=== PATIENT | male | born 1990 | race African-American/Black ===

== ENCOUNTER 2022-02-21 09:03 | Outpatient (CLI) | payer OTHER, SELFPAY ==
--- NOTE | ~2022-02-21 | US_ITS ---
US abdomen complete DATE: 02/21/2022 09:39 INDICATION: Chronic anemia TECHNIQUE: Real-time imaging and Doppler analysis of the complete abdomen COMPARISON: None FINDINGS: No hepatic space-occupying mass lesion. Normal hepatopedal portal venous flow direction. No gallstones or gallbladder wall thickening or pericholecystic fluid collection. Negative sonographi c Moreno's sign. The common bile duct measures 3.5 mm, normal. The pancreas is not well demonstrated due to overlying bowel gas. Right kidney measures 10.2 cm length, left kidney 10.6 cm length. No renal mass lesion or hydronephro sis is evident. Splenic size is within normal range, measuring up to 9.9 cm length. Normal caliber of the abdominal aorta. The inferior vena cava is unremarkable. IMPRESSION: No evidence of splenomegaly Limited visualization of the pancreas Reviewed, dictated and finalized at Location A. Reviewed, dictated and finalized at location B.
== END 2022-02-21 09:04 | disposition home or self-care (01) ==
LOC: ANHIMG 09:09
PROVIDERS: PCP Internal Medicine; Visit Provider Internal Medicine Hematology & Oncology
DX: D64.9 Anemia, unspecified (principal)
CPT/HCPCS: 76700

== ENCOUNTER 2023-01-01 15:44 | Outpatient (CLI) | payer OTHER, SELFPAY ==
[2023-01-01 15:55] LABS: Basophils Percent Auto 0.4 % (0.2-1.2); Eosinophils Absolute Auto 0.4 K/mm3 (0-0.3); Eosinophils Percent Auto 9.4 % (0-4.4); Hematocrit 44.4 % (42.0-52.0); Hemoglobin 14.2 g/dL (14.0-18.0); Immature Granulocyte Absolute 0.01 K/mm3 (0.00-0.031); Immature Granulocyte Percent A 0.2 % (0-0.5); Lymphocytes Absolute Auto 1.86 K/mm3 (0.9-3.2); Lymphocytes Percent Auto 40.7 % (18.3-44.2); Mean Corpuscular Hemoglobin 27.3 pg (26-34); Mean Corpuscular Volume 85.4 fl (80-100); Mean Platelet Volume 10.3 fl (7.4-10.4); Monocytes Absolute Auto 0.5 K/mm3 (0.1-0.6); Monocytes Percent Auto 9.8 % (2.6-8.5); Neutrophils Absolute Auto 1.8 K/mm3 (1.3-6.7); Neutrophils Percent Auto 39.5 % (45.5-73.1); Platelet Count Result 243 k/mm3 (150-375); Red Cell Distribution Width 13.3 % (11.5-14.5); White Blood Count 4.6 K/mm3 (4.5-10.0)
[2023-01-01 15:58] LABS: Blood Urea Nitrogen 17 mg/dL (8-26); Carbon Dioxide 28 mmol/L (22-30); Chloride 99 mmol/L (98-109); Estimated Glomerular Filt Rate > 60; Glucose 102 mg/dL (70-105); Ionized Calcium (POC) 1.24 mmol/L (1.11-1.31); Potassium 3.5 mmol/L (3.5-4.9); Sodium 140 mmol/L (138-146)
[2023-01-01 16:32] LABS: Alanine Aminotransferase 27 U/L (6-50); Albumin Level 4.7 g/dL (3.5-5.1); Alkaline Phosphatase 65 U/L (38-126); Anion Gap 7 mmol/L (8-16); Aspartate Amino Transferase 60 U/L (17-59); Bilirubin,Total 0.4 mg/dL (0.2-1.3); Blood Urea Nitrogen 17 mg/dL (9-20); Calcium 9.1 mg/dL (8.4-10.2); Carbon Dioxide 31 mmol/L (22-30); Chloride 100 mmol/L (98-107); Estimated Glomerular Filt Rate > 60; Glucose 101 mg/dL (65-110); Potassium 3.5 mmol/L (3.4-5.0); Sodium 138 mmol/L (137-145)
== END 2023-01-01 15:45 | disposition home or self-care (01) ==
PROVIDERS: PCP Internal Medicine; Visit Provider Internal Medicine Hematology & Oncology
DX: D72.819 Decreased white blood cell count, unspecified (principal)
CPT/HCPCS: 36415; 80047; 80053; 85025

== ENCOUNTER 2023-09-03 09:50 | Outpatient (CLI) | payer OTHER, SELFPAY ==
[2023-09-03 10:07] LABS: Basophils Percent Auto 0.7 % (0.2-1.2); Eosinophils Absolute Auto 0.4 K/mm3 (0-0.3); Eosinophils Percent Auto 9.1 % (0-4.4); Hematocrit 46.1 % (42.0-52.0); Hemoglobin 14.7 g/dL (14.0-18.0); Immature Granulocyte Absolute 0.01 K/mm3 (0.00-0.031); Immature Granulocyte Percent A 0.2 % (0-0.5); Lymphocytes Absolute Auto 1.99 K/mm3 (0.9-3.2); Lymphocytes Percent Auto 47.5 % (18.3-44.2); Mean Corpuscular HGB Conc 31.9 g/dl (32-36); Mean Corpuscular Hemoglobin 27.3 pg (26-34); Mean Corpuscular Volume 85.7 fl (80-100); Mean Platelet Volume 9.9 fl (7.4-10.4); Monocytes Absolute Auto 0.5 K/mm3 (0.1-0.6); Monocytes Percent Auto 11.2 % (2.6-8.5); Neutrophils Absolute Auto 1.3 K/mm3 (1.3-6.7); Neutrophils Percent Auto 31.3 % (45.5-73.1); Platelet Count Result 245 k/mm3 (150-375); Red Blood Count 5.38 M/mm3 (4.6-6.20); Red Cell Distribution Width 13.2 % (11.5-14.5); White Blood Count 4.2 K/mm3 (4.5-10.0)
== END 2023-09-03 09:51 | disposition home or self-care (01) ==
PROVIDERS: PCP Internal Medicine; Visit Provider Internal Medicine Hematology & Oncology
DX: D64.9 Anemia, unspecified (principal)
CPT/HCPCS: 36415; 85025

== ENCOUNTER 2024-10-17 10:17 | Outpatient (CLI) | payer OTHER, SELFPAY ==
[2024-10-17 10:40] LABS: Basophils Percent Auto 0.7 % (0.2-1.2); Eosinophils Absolute Auto 0.4 K/mm3 (0-0.3); Eosinophils Percent Auto 11.9 % (0-4.4); Hemoglobin 14.4 g/dL (14.0-18.0); Immature Granulocyte Absolute 0.01 K/mm3 (0.00-0.031); Immature Granulocyte Percent A 0.3 % (0-0.5); Lymphocytes Absolute Auto 1.55 K/mm3 (0.9-3.2); Lymphocytes Percent Auto 52.7 % (18.3-44.2); Mean Corpuscular HGB Conc 31.3 g/dl (32-36); Mean Corpuscular Hemoglobin 26.8 pg (26-34); Mean Corpuscular Volume 85.5 fl (80-100); Mean Platelet Volume 9.7 fl (7.4-10.4); Monocytes Absolute Auto 0.3 K/mm3 (0.1-0.6); Monocytes Percent Auto 10.2 % (2.6-8.5); Neutrophils Absolute Auto 0.7 K/mm3 (1.3-6.7); Neutrophils Percent Auto 24.2 % (45.5-73.1); Platelet Count Result 274 k/mm3 (150-375); Red Blood Count 5.38 M/mm3 (4.6-6.20); Red Cell Distribution Width 13.2 % (11.5-14.5); White Blood Count 2.9 K/mm3 (4.5-10.0)
--- OUTSIDE RECORDS SUMMARY | 2024-10-17 10:52 | XMS_ITS | Clinical Summary ---
Author Organization [facility] Address [address] [place] [address] Care Team Providers Care Cube Machine Tender Name Role Phone Lukas Bustamante MD Primary Care Provider Allergies No known active allergies Medications metFORMIN (GLUCOPHAGE) 500 mg tablet Take 500 mg by mouth 2 times daily. 01/13/2021 Active Active Problems Problem Noted Date Diagnosed Date Other neutropenia 02/06/2022 Encounters Date Type Department Care Team Description 09/12/2024 Orders Only [facility] Oncology and Hematology - [place] [address] [place] [address] Evaristo Lindsey MD Leukopenia, unspecified type (Primary Dx) from Last 3 Months Family History Medical History Relation Name Comments Breast Cancer Mother Relation Name Status Comments Brother Alive Daughter 1 Alive Daughter 2 Alive Father Mother Sister Alive Social History Tobacco Use Types Packs/Day Years Used Date Smoking Tobacco: Every Day Cigarettes Smokeless Tobacco: Never Tobacco Cessation:Ready to Q uit: Not Asked; Counseling Given: Not Answered Alcohol Use Standard Drinks/Week Comments Never 0 (1 standard drink = 0.6 oz pur e alcohol) Sex and Gender Information Value Date Recorded Sex Assigned at Not on file Legal Sex Male 3:28 PM CDT Gender Identity Not on file Sexual Orientation Not on file Last Filed Vital Signs Vital Sign Reading Time Taken Comments Blood Pressure 138/84 09/03/2023 10:10 AM WEDDING DECORATOR Pulse 82 09/03/2023 10:09 AM WEDDING DECORATOR Temperature 36.2 C (97.2 F) 09/03/2023 10:09 AM WEDDING DECORATOR Respiratory Rate 10 09/03/2023 10:09 AM WEDDING DECORATOR Oxygen Saturation 97% 09/03/2023 10:09 AM WEDDING DECORATOR Inhaled Oxygen Concentration - - Weight 76.2 kg (168 lb) 09/03/2023 10:09 AM WEDDING DECORATOR Height 180.3 cm (5' 11 ) 02/06/2022 10:24 AM CDT Body Mass Index 23.43 02/06/2022 10:24 AM CDT Plan of Treatment Upcoming Encounters Date Type Department Care Team (Late st Contact Info) Description 12/30/2024 2:45 PM CDT Office Visit [facility] - [place] [address] [facility] [address] [place] [address] Evaristo Lindsey MD [address] [facility] [address] [place] [address] Health Maintenance Due Date Last Done Comments HEPATITIS B VACCINES (1 of 3 - 19+ 3-dose series) 2007 INFLUENZA VACCINE (#1) 2024 2, 06/05/2019, 06/04/2018 Preventative Visit- Commercial 08/27/2024 DTAP/TDAP/TD VACCINES (8 - Td or Tdap) 04/12/2031 04/12/2021, 06/04/2018, 04/27/2014, Additional history exists HPV VACCINES Aged Out No longer eligi ble based on patient's age to complete this topic Insurance Care Teams Cube Machine Tender Relationship Specialty Start Date End Date Lukas Bustamante MD PCP - General Internal Medicine 02/06/22
--- OUTSIDE RECORDS SUMMARY | 2024-10-17 10:52 | XMS_ITS | Clinical Summary ---
Author Organization [facility] Address [address] [place] [address] Care Team Providers Care Electrical Equipment Technician Name Role Phone Unavailable Primary Care Provider Unavailabl e Source Comments [facility],non-owned Affiliates and Associated Physician Practices is amultiple site organization consisting of ambulatory clinics and hospital sitesin [place], [place] and [place]. This disclosure is being madepursuant to the Care Everywhere program and may not contain all information available regarding this patient. Last updated 18.[facility] [employer] Allergies Active Allergy Reactions Criticality Noted Date Comments Ibuprofen Urticaria,Swelling Medium 03/28/2012 Swelling Immunizations Name Administration Dates Next Due TDAP (7yrs+) 04/12/2021 Social History Tobacco Use Types Packs/Day Years Used Date Smoking Tobacco: Never Assessed Sex and Gender Information Value Date Recorded Sex Assigned at Not on file Gender Identity Not on file Sexual Orientation Not on file Plan of Treatment Health Maintenance Due Date Last Done Comments HIV SCREENING 2003 HEPATITIS C SCREENING 07/20/2006 HEPATITIS B VACCINE (1 of 3 - 19+ 3-dose series) 2007 COVID-19 VACCINE (2023-2 5 season) 2024 INFLUENZA VACCINE (#1) 2024 9, 06/27/2018, 06/04/2018 DEPRESSION SCREENING 08/27/2024 DTAP/TDAP/TD VACCINES (2 - T d or Tdap) 04/12/2031 04/12/2021 ZOSTER VACCINE (1 of 2) 2038 HIB VACCINE Aged Out No longer eligi ble based on patient's age to complete this topic HPV VACCINE Aged Out No longer eligi ble based on patient's age to complete this topic MENINGOCOCCAL (Group B) VACCINE Aged Out No longer eligible b ased on patient's age to complete this topic MENINGOCOCCAL VACCINE Aged Out No chela josé miguel eligible based on patient's age to complete this topic PNEUMOCOCCAL VACCINE Aged Out No long er eligible based on patient's age to complete this topic
--- OUTSIDE RECORDS SUMMARY | 2024-10-17 10:52 | XMS_ITS | Referral Summary ---
Author Organization [facility] Address [address] [place] [address] Care Team Providers Care Hospital Admissions Clerk Name Role Phone Unavailable Primary Care Provider Unavailabl e Source Comments [facility],non-owned Affiliates and Associated Physician Practices is amultiple site organization consisting of ambulatory clinics and hospital sitesin [place], [place], [place] and [place]. This disclosure is being madepursuant to the Care Everywhere program and may not contain all information available regarding this patient. Last updated 18.[facility] Allergies Active Allergy Reactions Criticality Noted Date Comments Ibuprofen Urticaria,Swelling Medium 03/28/2012 Swelling Immunizations Name Administration Dates Next Due TDAP (7yrs+) 04/12/2021 Social History Tobacco Use Types Packs/Day Years Used Date Smoking Tobacco: Never Assessed Sex and Gender Information Value Date Recorded Sex Assigned at Not on file Gender Identity Not on file Sexual Orientation Not on file Plan of Treatment Not on file
--- OUTSIDE RECORDS SUMMARY | 2024-10-17 10:52 | XMS_ITS | Patient Health Summary ---
Author Organization [facility] Address [address] [place] [address] Care Team Providers Care Coffee Shop Attendant Name Role Phone Unavailable Primary Care Provider Unavailabl e Note from [facility],non-owned Affiliates and Associated Physician Practices is amultiple site organization consisting of ambulatory clinics and hospital sitesin [place], [place], [place] and [place]. This disclosure is being madepursuant to the Care Everywhere program and may not contain all information available regarding this patient. Last updated 18.[facility] Allergies * Ibuprofen(Urticaria,Swelling) -Medium Criticality Immunizations * TDAP (7yrs+)(Given 04/12/2021) Social History Tobacco Use Types Packs/Day Years Used Date Smoking Tobacco: Never Assessed Sex and Gender Information Value Date Recorded Sex Assigned at Not on file Gender Identity Not on file Sexual Orientation Not on file
--- OUTSIDE RECORDS SUMMARY | 2024-10-17 10:53 | XMS_ITS | Clinical Summary ---
Author Organization [facility] Address [address] [place] [id number] Care Team Providers Care Professor Of Art History Name Role Phone Amy Bustamante MD Primary Care Provide r Fidel Real DO Unavailable [phone] Allergies Active Allergy Reactions Criticality Noted Date Comments Ibuprofen Hives,Swelling Medium 03/28/2012 Swelling Medications metFORMIN (GLUCOPHAGE) 500 mg tablet Take 500 mg by mouth 2 (two) times a day 01/13/2021 Active Active Problems Problem Noted Date Diagnosed Date Other neutropenia (CMS/HCC) 08/10/2018 Immunizations Immunization Administration Dates Next Due DTP 03/23/1993, 0,1988,09/25 HiB 04/30/1990 Influenza, Quadrivalent, Spl it, Preservative Free, Intramuscular 06/05/2019,06/04/2018 Influenza, Unspecified 06/27/2018 MMR 03/23/1993,04/30/1990 OPV 03/23/1993, 0,02/12/1989,12/02,1988 Td, adsorbed 02/12/1989 Tdap 06/04/2018,04/27/2014 Surgical History Surgery Date Site/Laterality Comments NO PAST SURGERIES Medical History Medical History Date Comments Known health problems: none Diabetes mellitus (HCC) Family History Medical History Relation Name Comments Neutropenia Father Breast cancer Mother Leukemia Other Relation Name Status Comments Father Alive Mother Other Social History Tobacco Use Types Packs/Day Years Used Date Smoking Tobacco: Never Smokeless Tobacco: Never Alcohol Use Standard Drinks/Week Comments No 0 (1 standard drink = 0.6 oz pur e alcohol) Personal Safety Answer Date Recorded Getting School Help Needed Not on file 10/20 Sex and Gender Information Value Date Recorded Sex Assigned at Not on file Legal Sex Male 10:15 PM COORDINATOR OF ONLINE PROGRAMS Gender Identity Not on file Sexual Orientation Not on file 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 Not on file Not on file Obstetrics History Last Filed Vital Signs Vital Sign Reading Time Taken Comments Blood Pressure 129/87 02/21/2021 11:35 AM CDT Pulse 79 02/21/2021 11:35 AM CDT Temperature 37.1 C (98.8 F) 02/21/2021 11:35 AM CDT Respiratory Rate 16 02/21/2021 11:35 AM CDT Oxygen Saturation 100% 02/21/2021 11:35 AM CDT Inhaled Oxygen Concentration - - Weight 80.7 kg (178 lb) 02/21/2021 11:35 AM CDT Height 180.3 cm (5' 11 ) 02/21/2021 11:35 AM CDT Body Mass Index 24.83 02/21/2021 11:35 AM CDT Plan of Treatment Not on file Insurance [facility] [employer] [employer] Care Teams Professor Of Art History Relationship Specialty Start Date End Date Amy Bustamante MD [address] [address] PCP - General Internal Medicine 08/01/18 Fidel Real DO [address] [place] [id number] Medical Oncologist/Railroad Baggage Porter Hematology and Oncology 02/10/19
--- OUTSIDE RECORDS SUMMARY | 2024-10-17 10:53 | XMS_ITS | Referral Summary ---
Author Organization [facility] Address [address] [place] [address] Care Team Providers Care Newspaper Editor Managing Name Role Phone Amy Bustamante MD Primary Care Provide r Fidel Real DO Unavailable [phone] Allergies Active Allergy Reactions Criticality Noted Date Comments Ibuprofen Hives,Swelling Medium 03/28/2012 Swelling Medications metFORMIN (GLUCOPHAGE) 500 mg tablet Take 500 mg by mouth 2 (two) times a day 01/13/2021 Active Active Problems Problem Noted Date Diagnosed Date Other neutropenia ([facility]) 08/10/2018 Immunizations Immunization Administration Dates Next Due DTP 03/23/1993, 0,1988,09/25 HiB 04/30/1990 Influenza, Quadrivalent, Spl it, Preservative Free, Intramuscular 06/05/2019,06/04/2018 Influenza, Unspecified 06/27/2018 MMR 03/23/1993,04/30/1990 OPV 03/23/1993, 0,02/12/1989,12/02,1988 Td, adsorbed 02/12/1989 Tdap 06/04/2018,04/27/2014 Social History Tobacco Use Types Packs/Day Years Used Date Smoking Tobacco: Never Smokeless Tobacco: Never Alcohol Use Standard Drinks/Week Comments No 0 (1 standard drink = 0.6 oz pur e alcohol) Personal Safety Answer Date Recorded Getting School Help Needed Not on file 10/20 Sex and Gender Information Value Date Recorded Sex Assigned at Not on file Legal Sex Male 10:15 PM ADJUNCT SOCIOLOGY PROFESSOR Gender Identity Not on file Sexual Orientation Not on file 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
--- OUTSIDE RECORDS SUMMARY | 2024-10-17 10:53 | XMS_ITS | Data Portability ---
Author Organization [employer], Main Office Address [address] [place] [address] Care Team Providers Care System Administration Manager Name Role Phone LUKAS BUSTAMANTE Primary Care Provider LUKAS BUSTAMANTE Referring Provider Assessment Encounter Date Assessment Date Assessment LastModified by Organization Details LastModified Time 01/02/2023 01/02/2023 06/15/2022: A1C 5.8 TSH WNL CMP: BUN 26H, glob 2.5L, TP WNL LIPIDS: LDL 100 Urine micro alb 6.4 CBC: WBC 3.5L 12/18/2022: A1C 5.9 TSH: WNL CMP: WNL CBC: WBC 3.1 Urine micro alb <6.0 01/01/2023: Dr Lindsey CBC/CMP: WNL Not available 01/02/2023 10:18:08 07/23/2023 07/23/2023 06/15/2022: A1C 5.8 TSH WNL CMP: BUN 26H, glob 2.5L, TP WNL LIPIDS: LDL 100 Urine micro alb 6.4 CBC: WBC 3.5L 12/18/2022: A1C 5.9 TSH: WNL CMP: WNL CBC: WBC 3.1 Urine micro alb <6.0 01/01/2023: Dr Lindsey CBC/CMP: WNL 07/02/2023: A1C 5.7 LDL 114 WBC 3.5 Not available 07/23/2023 14:20:52 01/10/2024 01/10/2024 06/15/2022: A1C 5.8 TSH WNL CMP: BUN 26H, glob 2.5L, TP WNL LIPIDS: LDL 100 Urine micro alb 6.4 CBC: WBC 3.5L 12/18/2022: A1C 5.9 TSH: WNL CMP: WNL CBC: WBC 3.1 Urine micro alb <6.0 01/01/2023: Dr Lindsey CBC/CMP: WNL 07/02/2023: A1C 5.7 LDL 114 WBC 3.5 12/24/2023: A1C 5.7 VIT D 23.0 WBC 3.7 Glob 2.3L, TP WNL [email or web address] Not available 01/10/2024 15:39:28 Plan of Treatment Reminders Order Date Submit Date Provider Last Modified By Organization Details Last Modified Time Details Appointments Any 15 2024 03:45P Jensen hernandes MD Not available Not available Not available Lab vitamin D, 25-hydrox y, total, serum [address] (Lab), [address] [place], [address], 07/08/2024 09:24:25 glycohemo globin, total, blood [address] (Lab), [address] [place], [address], 07/08/2024 09:24:25 microalbu min, urine [address] (Lab), [address] [place], [address], 07/08/2024 09:24:25 lipid panel, serum [address] (Lab), [address] [place], [address], 07/08/2024 09:24:24 CBC w/ auto diff [address] (Lab), [address] [place], [address], 07/08/2024 09:24:24 CMP, serum or plasma [address] (Lab), [address] [place], [address], 07/08/2024 09:24:24 TSH, serum or plasma [address] (Lab), [address] [place], [address], 07/08/2024 09:24:25 vitamin D, 25-hydrox y, total, serum [address] (Lab), [address] [place], [address], 02/25/2024 09:08:24 glycohemo globin, total, blood 2022 023 [facility] (Lab), [address] [place], [address], 12/24/2023 12:52:07 microalbu min, urine 2022 023 [facility] (Lab), [address] [place], [address], 12/24/2023 11:05:59 lipid panel, serum 2022 023 [facility] (Lab), [address] [place], [address], 12/24/2023 10:53:49 CBC w/ auto diff 2022 023 [facility] (Lab), [address] [place], [address], 12/24/2023 11:02:31 CMP, serum or plasma 2022 023 [facility] (Lab), [address] [place], [address], 10/02/2023 16:43:20 TSH, serum or plasma 2022 023 [facility] (Lab), [address] [place], [address], 12/24/2023 11:20:54 glycohemo globin, total, blood 2022 023 [facility] (Lab), [address] [place], [address], 07/02/2023 14:01:12 microalbu min, urine [address] (Lab), [address] [place], [address], 08/28/2023 12:45:54 lipid panel, serum 2022 023 [facility] (Lab), [address] [place], [address], 07/02/2023 11:29:12 CBC w/ auto diff 2022 023 [facility] (Lab), [address] [place], [address], 07/02/2023 11:16:22 CMP, serum or plasma 2022 023 [facility] (Lab), [address] [place], [address], 07/02/2023 11:29:20 TSH, serum or plasma 2022 023 [facility] (Lab), [address] [place], [address], 07/02/2023 12:17:12 Referral urologist referral 2023 024 MILLY Kirkpatrick MD, [address], [place], [address], 03/21/2024 16:02:25 urologist referral 2022 023 Jesse Beth MD, [address], [place], [address], 03/04/2024 15:23:26 Procedures None recorded. Surgeries None recorded. Imaging None recorded. Medication Orders rosuvasta tin 40 mg tablet 2022 023 [id number], [address] , [place], [place], [id number], 07/23/2023 14:39:58 Patient TargetsNo targets recorded. Patient Instructions Encounter Date Encounter Id Patient Instructions Last Modified By Organization Details Last Modified Time 07/23/2023 [id number] diabetic eye exam* MILLY Not available 01/22/2024 07:25:54 03/21/2024 [id number] I explained to the patient that itches constipation along with his seminal vesicles being full of semen and it just pushes out some the semen I the ejaculatory duct and that is all and it has no concern [email or web address] Not available 03/21/2024 15:32:38 Reason for Referral Urologist Referral for Kylah ture ejaculation Referring Physician: Lukas Bustamante, Internal Medicine, Encounter Date: 07/23/2023 Urologist Referral for Kyalh ture ejaculation Referring Physician: Lukas Bustamante Internal Medicine, Encounter Date: 01/10/2024 Results Created Date Observation Date Name Description Value Unit Range Abnormal Flag Note LastModifiedBy Organization Detail LastModifiedTime 06/15/2006/15/2022 HEMOG LOBIN A1C HA1C 5.8 % 4.0-6. 0 Diabe albert Scree jorge Crite apollo: <5.7% Consi stent with absen ce of diabe albert 5.7-6 .4% Consi stent with incre ased risk for diabe albert (pred iabet es) >OR=6 .5% Consi stent with diabe albert REFER ENCE: Diabe albert Care 2015, 39(Gillis ppl.1 ):s13 -s22 Not Available [facility] (Lab) [address] [place], [address], 06/15/2022 20:12:32 06/15/20 22 06/15/2022 TSH W/REF TERRANCE FT4 TSH with reflex free T4 1.690 uIU/m L 0.465- 4.680 Not Available [facility] (Lab) [address] [place], [address], 06/15/2022 12:18:52 06/15/20 22 06/15/2022 COMPR EHENS HAYLEE METAB OLIC PANEL anion gap 14.3 mmol/ L 14-22 Not Available [facility] (Lab) [address] [place], [address], 06/15/2022 12:08:29 06/15/20 22 06/15/2022 COMPR EHENS HAYLEE METAB OLIC PANEL sodium 142 mmol/ L 137-14 5 Not Available [facility] (Lab) [address] [place], [address], 06/15/2022 12:08:29 06/15/20 22 06/15/2022 COMPR EHENS HAYLEE METAB OLIC PANEL potassium 4.3 mmol/ L 3.5-5. 1 Not Available [facility] (Lab) [address] [place], [address], 06/15/2022 12:08:29 06/15/20 22 06/15/2022 COMPR EHENS HAYLEE METAB OLIC PANEL chloride 105 mmol/ L 98-107 Not Available [facility] (Lab) [address] [place], [address], 06/15/2022 12:08:29 06/15/20 06/15/2022 COMPR EHENS HAYLEE METAB OLIC PANEL carbon dioxide 27 mmol/ L 22-30 Not Available [facility] (Lab) [address] [place], [address], 06/15/2022 12:08:29 06/15/20 22 06/15/2022 COMPR EHENS HAYLEE METAB OLIC PANEL glucose 88 mg/dL 70-99 Not Available [facility] (Lab) [address] [place], [address], 06/15/2022 12:08:29 06/15/20 22 06/15/2022 COMPR EHENS HAYLEE METAB OLIC PANEL BUN 26 mg/dL 8-19 high Not Available [facility] (Lab) [address] [place], [address], 06/15/2022 12:08:29 06/15/20 22 06/15/2022 COMPR EHENS HAYLEE METAB OLIC PANEL creatinine 1.03 mg/dL 0.66-1 .25 Not Available [facility] (Lab) [address] [place], [address], 06/15/2022 12:08:29 06/15/20 22 06/15/2022 COMPR EHENS HAYLEE METAB OLIC PANEL aspartate aminotransfe rase 30 U/L 15-46 Not Available [facility] (Lab) [address] [place], [address], 06/15/2022 12:08:29 06/15/20 22 06/15/2022 COMPR EHENS HAYLEE METAB OLIC PANEL GFR >60 Refer ence Range : [place] ge GFR Healt hy Adult : >60 mL/mi n/1.7 3 m2 Chron ic Kidne y Disea se: 15-60 mL/mi n/1.7 3 m2 Kidne y Failu re: <15/m L/min /1.73 m2 www.n iddk. nih.g ov The MDRD study equat ion has not been valid ated in child diane <18 years of age; pregn ant women ; the elder ly >85 years of age; or in some racia l or ethni c subgr oups, such as Hispa nics. Outsi de the valid ated elmo eters , estim ated GFR is less accur ate, requi ring clini charley judgm ent on a case- by-ca se basis . Clini charley inter preta tion for other races and ages must be made by the clini nichelle. The MDRD study equat ion has not been valid ated for the evalu ation of serum creat inine relat ed to nutri tacos l statu s or medic ation usage . For perso ns <18 years of age, a pedia tric GFR calcu lator is avail able on the [facility] websi te: https ://new w.jovanny galvan.o rg/pr ofess ional s/kdo qi/gf r_cal culat or Not Available [facility] (Lab) [address] [place], [address], 06/15/2022 12:08:29 06/15/20 22 06/15/2022 COMPR EHENS HAYLEE METAB OLIC PANEL alkaline phosphatase 90 U/L 38-126 Not Available [facility] (Lab) [address] [place], [address], 06/15/2022 12:08:29 06/15/20 22 06/15/2022 COMPR EHENS HAYLEE METAB OLIC PANEL alanine aminotransfe rase 32 U/L 0-50 Not Available [facility] (Lab) [address] [place], [address], 06/15/2022 12:08:29 06/15/20 22 06/15/2022 COMPR EHENS HAYLEE METAB OLIC PANEL bilirubin, total 0.50 mg/dL 0.20-1 .30 Not Available [facility] (Lab) [address] [place], [address], 06/15/2022 12:08:29 10/20/06/15/2022 COMPR EHENS HAYLEE METAB OLIC PANEL calcium 9.5 mg/dL 8.4-10 .2 Not Available [facility] (Lab) [address] [place], [address], 06/15/2022 12:08:29 06/15/20 22 06/15/2022 COMPR EHENS HAYLEE METAB OLIC PANEL total protein 7.2 g/dL 6.3-8. 2 Not Available [facility] (Lab) [address] [place], [address], 06/15/2022 12:08:29 06/15/20 22 06/15/2022 COMPR EHENS HAYLEE METAB OLIC PANEL albumin 4.7 g/dL 3.4-5. 0 Not Available [facility] (Lab) [address] [place], [address], 06/15/2022 12:08:29 06/15/20 22 06/15/2022 COMPR EHENS HAYLEE METAB OLIC PANEL globulin 2.5 g/dL 2.6-4. 2 low Not Available [facility] (Lab) [address] [place], [address], 06/15/2022 12:08:29 06/15/20 22 06/15/2022 COMPR EHENS HAYLEE METAB OLIC PANEL A/G ratio 1.9 ratio 1.0-2. 0 Not Available [facility] (Lab) [address] [place], [address], 06/15/2022 12:08:29 06/15/20 22 06/15/2022 LIPID PANEL cholesterol 172 mg/dL 140-19 9 NIH MERON NSUS RECOM MENDA TION FOR ARON STERO L: ADULT CHILD LOW RISK: <200 <170 BORDE RLINE : <200- 239 ----- HIGH RISK: >240 >200 Not Available [facility] (Lab) [address] [place], [address], 06/15/2022 12:08:25 06/15/20 22 06/15/2022 LIPID PANEL triglyceride s 68 mg/dL 0-150 NIH MERON NSUS REPOR T RECOM MENDA TION FOR TRIGL YCERI TRICE: ADULT CHILD LOW RISK: <150 ----- BODER LINE: 150-1 99 ----- HIGH RISK: >200 ----- Not Available [facility] (Lab) [address] [place], [address], 06/15/2022 12:08:25 06/15/20 22 06/15/2022 LIPID PANEL HDL cholesterol 58 mg/dL 40- Not Available [facility] (Lab) [address] [place], [address], 06/15/2022 12:08:25 06/15/20 22 06/15/2022 LIPID PANEL LDL cholesterol, calculated 100 mg/dL 0-130 NIH MERON NSUS REPOR T RECOM MENDA TIONS FOR LDL: ADULT CHILD LOW RISK <130 <110 (OPTI MAL LDL) <100 ----- BORDE RLINE : 130-1 59 ----- HIGH RISK: >160 >130 A TRIGL YCERI DE RESUL T >400 INVAL IDATE S THE CALCU LATIO N FOR LDL FRACT IONAT ION - THE LDL RESUL T WILL NOT BE REPOR JAHAIRA. Not Available [facility] (Lab) [address] [place], [address], 06/15/2022 12:08:25 06/15/20 22 06/15/2022 MICRO ALBUM IN RANDO M URINE microalbumin , urine 6.4 mg/L 0.0-16 .6 Not Available [facility] (Lab) [address] [place], [address], 06/15/2022 11:56:49 06/15/20 22 06/15/2022 CBC/C OMPLE TE BLD COUNT W/DIF F mean red cell hemoglobin 26.9 pg 27.0-3 3.0 low Not Available [facility] (Lab) [address] [place], [address], 06/15/2022 11:11:22 06/15/20 22 06/15/2022 CBC/C OMPLE TE BLD COUNT W/DIF F white blood cells 3.5 x10'3 /uL 4.2-10 .8 low Not Available [facility] (Lab) [address] [place], [address], 06/15/2022 11:11:22 06/15/20 22 06/15/2022 CBC/C OMPLE TE BLD COUNT W/DIF F red blood cells 5.32 x10'6 /uL 4.10-5 .80 Not Available [facility] (Lab) [address] [place], [address], 06/15/2022 11:11:22 06/15/20 22 06/15/2022 CBC/C OMPLE TE BLD COUNT W/DIF F hemoglobin 14.3 g/dL 13.2-1 7.0 Not Available [facility] (Lab) [address] [place], [address], 06/15/2022 11:11:22 06/15/20 22 06/15/2022 CBC/C OMPLE TE BLD COUNT W/DIF F hematocrit 46.5 % 39.3-5 0.0 Not Available [facility] (Lab) [address] [place], [address], 06/15/2022 11:11:22 06/15/20 22 06/15/2022 CBC/C OMPLE TE BLD COUNT W/DIF F mean red cell volume 87.4 fL 80.0-9 7.0 Not Available [facility] (Lab) [address] [place], [address], 06/15/2022 11:11:22 06/15/20 22 06/15/2022 CBC/C OMPLE TE BLD COUNT W/DIF F mean RBC HGB concentratio n 30.8 g/dL 31.0-3 6.0 low Not Available [facility] (Lab) [address] [place], [address], 06/15/2022 11:11:22 06/15/20 22 06/15/2022 CBC/C OMPLE TE BLD COUNT W/DIF F red cell distribution width 13.3 % 11.8-1 5.5 Not Available [facility] (Lab) [address] [place], [address], 06/15/2022 11:11:22 06/15/2006/15/2022 CBC/C OMPLE TE BLD COUNT W/DIF F platelets 240 x10'3 /uL 150-40 0 Not Available [facility] (Lab) [address] [place], [address], 06/15/2022 11:11:22 06/15/2006/15/2022 CBC/C OMPLE TE BLD COUNT W/DIF F mean platelet volume 10.6 fL 9.0-12 .4 Not Available [facility] (Lab) [address] [place], [address], 06/15/2022 11:11:22 06/15/20 22 06/15/2022 CBC/C OMPLE TE BLD COUNT W/DIF F neutrophils 33.9 % 39.0-7 2.0 low Not Available [facility] (Lab) [address] [place], [address], 06/15/2022 11:11:22 06/15/20 22 06/15/2022 CBC/C OMPLE TE BLD COUNT W/DIF F lymphocytes 47.7 % 16.0-4 7.0 high Not Available [facility] (Lab) [address] [place], [address], 06/15/2022 11:11:22 06/15/20 22 06/15/2022 CBC/C OMPLE TE BLD COUNT W/DIF F monocytes 12.6 % 5.0-12 .0 high Not Available [facility] (Lab) [address] [place], [address], 06/15/2022 11:11:22 06/15/20 22 06/15/2022 CBC/C OMPLE TE BLD COUNT W/DIF F eosinophils 5.5 % 1.0-7. 0 Not Available [facility] (Lab) [address] [place], [address], 06/15/2022 11:11:22 06/15/2006/15/2022 CBC/C OMPLE TE BLD COUNT W/DIF F basophils 0.3 % 0.0-2. 0 Not Available [facility] (Lab) [address] [place], [address], 06/15/2022 11:11:22 06/15/2006/15/2022 CBC/C OMPLE TE BLD COUNT W/DIF F immature granulocytes 0.0 % 0.00-0 .50 Not Available [facility] (Lab) [address] [place], [address], 06/15/2022 11:11:22 06/15/20 22 06/15/2022 CBC/C OMPLE TE BLD COUNT W/DIF F neutrophils, absolute count 1.18 x10'3 /uL 1.5-8. 0 low Not Available [facility] (Lab) [address] [place], [address], 06/15/2022 11:11:22 06/15/20 22 06/15/2022 CBC/C OMPLE TE BLD COUNT W/DIF F lymphocytes, absolute count 1.66 x10'3 /uL 1.07-3 .43 Not Available [facility] (Lab) [address] [place], [address], 06/15/2022 11:11:22 06/15/20 22 06/15/2022 CBC/C OMPLE TE BLD COUNT W/DIF F monocytes, absolute count 0.44 x10'3 /uL 0.29-0 .99 Not Available [facility] (Lab) [address] [place], [address], 06/15/2022 11:11:22 06/15/20 22 06/15/2022 CBC/C OMPLE TE BLD COUNT W/DIF F eosinophils, absolute count 0.19 x10'3 /uL 0.02-0 .53 Not Available [facility] (Lab) [address] [place], [address], 06/15/2022 11:11:22 06/15/2006/15/2022 CBC/C OMPLE TE BLD COUNT W/DIF F basophils, absolute count 0.01 x10'3 /uL 0.01-0 .08 Not Available [facility] (Lab) [address] [place], [address], 06/15/2022 11:11:22 06/15/20 22 06/15/2022 CBC/C OMPLE TE BLD COUNT W/DIF F immature granulocytes ,absolute 0.00 x10'3 /uL 0.00-0 .05 Not Available [facility] (Lab) [address] [place], [address], 06/15/2022 11:11:22 06/15/2006/15/2022 CBC/C OMPLE TE BLD COUNT W/DIF F nucleated red blood cells 0.0 % -0 Not Available [facility] (Lab) [address] [place], [address], 06/15/2022 11:11:22 06/15/20 22 06/15/2022 CBC/C OMPLE TE BLD COUNT W/DIF F NRBC# 0.00 x10'3 /uL Not Available [facility] (Lab) [address] [place], [address], 06/15/2022 11:11:22 12/19/19 23 12/18/2022 MICRO ALBUM IN RANDO M URINE microalbumin , urine <6.0 mg/L 0.0-16 .6 Not Available [facility] (Lab) [address] [place], [address], 12/18/2022 12:50:33 12/19/19 23 12/18/2022 CBC/C OMPLE TE BLD COUNT W/DIF F white blood cells 3.1 x10'3 /uL 4.2-10 .8 low Not Available [facility] (Lab) [address] [place], [address], 12/18/2022 15:39:29 12/19/19 23 12/18/2022 CBC/C OMPLE TE BLD COUNT W/DIF F red blood cells 5.31 x10'6 /uL 4.10-5 .80 Not Available [facility] (Lab) [address] [place], [address], 12/18/2022 15:39:29 12/19/19 23 12/18/2022 CBC/C OMPLE TE BLD COUNT W/DIF F hemoglobin 14.4 g/dL 13.2-1 7.0 Not Available [facility] (Lab) [address] [place], [address], 12/18/2022 15:39:29 12/19/19 23 12/18/2022 CBC/C OMPLE TE BLD COUNT W/DIF F hematocrit 45.9 % 39.3-5 0.0 Not Available [facility] (Lab) [address] [place], [address], 12/18/2022 15:39:29 12/19/19 23 12/18/2022 CBC/C OMPLE TE BLD COUNT W/DIF F mean red cell volume 86.4 fL 80.0-9 7.0 Not Available [facility] (Lab) [address] [place], [address], 12/18/2022 15:39:29 12/19/19 23 12/18/2022 CBC/C OMPLE TE BLD COUNT W/DIF F mean red cell hemoglobin 27.1 pg 27.0-3 3.0 Not Available [facility] (Lab) [address] [facility] [place], [address], 12/18/2022 15:39:29 12/19/19 23 12/18/2022 CBC/C OMPLE TE BLD COUNT W/DIF F mean RBC HGB concentratio n 31.4 g/dL 31.0-3 6.0 Not Available [facility] (Lab) [address] [place], [address], 12/18/2022 15:39:29 12/19/19 23 12/18/2022 CBC/C OMPLE TE BLD COUNT W/DIF F red cell distribution width 13.4 % 11.8-1 5.5 Not Available [facility] (Lab) [address] [place], [address], 12/18/2022 15:39:29 12/19/19 23 12/18/2022 CBC/C OMPLE TE BLD COUNT W/DIF F platelets 261 x10'3 /uL 150-40 0 Not Available [facility] (Lab) [address] [place], [address], 12/18/2022 15:39:29 12/19/19 23 12/18/2022 CBC/C OMPLE TE BLD COUNT W/DIF F mean platelet volume 10.4 fL 9.0-12 .4 Not Available [facility] (Lab) [address] [place], [address], 12/18/2022 15:39:29 12/19/19 23 12/18/2022 CBC/C OMPLE TE BLD COUNT W/DIF F neutrophils 25 % 39.0-7 2.0 low Not Available [facility] (Lab) [address] [place], [address], 12/18/2022 15:39:29 12/19/1912/18/2022 CBC/C OMPLE TE BLD COUNT W/DIF F lymphocytes 51 % 16.0-4 7.0 high Not Available [facility] (Lab) [address] [place], [address], 12/18/2022 15:39:29 12/19/19 23 12/18/2022 CBC/C OMPLE TE BLD COUNT W/DIF F monocytes 11 % 5.0-12 .0 Not Available [facility] (Lab) [address] [place], [address], 12/18/2022 15:39:29 12/19/19 23 12/18/2022 CBC/C OMPLE TE BLD COUNT W/DIF F eosinophils 13 % 1.0-7. 0 high Not Available [facility] (Lab) [address] [place], [address], 12/18/2022 15:39:29 12/19/19 23 12/18/2022 CBC/C OMPLE TE BLD COUNT W/DIF F neutrophils, absolute count 0.78 x10'3 /uL 1.5-8. 0 low Not Available [facility] (Lab) [address] [place], [address], 12/18/2022 15:39:29 12/19/1912/18/2022 CBC/C OMPLE TE BLD COUNT W/DIF F lymphocytes, absolute count 1.58 x10'3 /uL 1.07-3 .43 Not Available [facility] (Lab) [address] [place], [address], 12/18/2022 15:39:29 12/19/19 23 12/18/2022 CBC/C OMPLE TE BLD COUNT W/DIF F monocytes, absolute count 0.34 x10'3 /uL 0.29-0 .99 Not Available [facility] (Lab) [address] [place], [address], 12/18/2022 15:39:29 12/19/19 23 12/18/2022 CBC/C OMPLE TE BLD COUNT W/DIF F eosinophils, absolute count 0.40 x10'3 /uL 0.02-0 .53 Not Available [facility] (Lab) [address] [place], [address], 12/18/2022 15:39:29 12/19/19 23 12/18/2022 CBC/C OMPLE TE BLD COUNT W/DIF F basophils, absolute count 0.00 x10'3 /uL 0.01-0 .08 low Not Available [facility] (Lab) [address] [place], [address], 12/18/2022 15:39:29 12/19/19 23 12/18/2022 CBC/C OMPLE TE BLD COUNT W/DIF F immature granulocytes ,absolute 0.00 x10'3 /uL 0.00-0 .05 Not Available [facility] (Lab) [address] [place], [address], 12/18/2022 15:39:29 12/19/19 23 12/18/2022 CBC/C OMPLE TE BLD COUNT W/DIF F nucleated red blood cells 0.0 % -0 Not Available [facility] (Lab) [address] [place], [address], 12/18/2022 15:39:29 12/19/19 23 12/18/2022 CBC/C OMPLE TE BLD COUNT W/DIF F NRBC# 0.00 x10'3 /uL Not Available [facility] (Lab) [address] [place], [address], 12/18/2022 15:39:29 12/19/19 23 12/18/2022 CBC/C OMPLE TE BLD COUNT W/DIF F reactive lymphocytes 1+ Not Available [facility] (Lab) [address] [place], [address], 12/18/2022 15:39:29 12/19/19 23 12/18/2022 COMPR EHENS HAYLEE METAB OLIC PANEL sodium 139 mmol/ L 137-14 5 Not Available [facility] (Lab) [address] [place], [address], 12/18/2022 16:00:20 12/19/19 23 12/18/2022 COMPR EHENS HAYLEE METAB OLIC PANEL potassium 4.3 mmol/ L 3.5-5. 1 Not Available [facility] (Lab) [address] [place], [address], 12/18/2022 16:00:20 12/19/19 23 12/18/2022 COMPR EHENS HAYLEE METAB OLIC PANEL chloride 104 mmol/ L 98-107 Not Available [facility] (Lab) [address] [place], [address], 12/18/2022 16:00:20 12/19/19 23 12/18/2022 COMPR EHENS HAYLEE METAB OLIC PANEL carbon dioxide 31 mmol/ L 22-30 high Not Available [facility] (Lab) [address] [place], [address], 12/18/2022 16:00:20 12/19/19 23 12/18/2022 COMPR EHENS HAYLEE METAB OLIC PANEL anion gap 8.3 mmol/ L 14-22 low Not Available [facility] (Lab) [address] [place], [address], 12/18/2022 16:00:20 12/19/19 23 12/18/2022 COMPR EHENS HAYLEE METAB OLIC PANEL glucose 91 mg/dL 70-99 Not Available [facility] (Lab) [address] [place], [address], 12/18/2022 16:00:20 12/19/19 23 12/18/2022 COMPR EHENS HAYLEE METAB OLIC PANEL BUN 13 mg/dL 8-19 Not Available [facility] (Lab) [address] [facility] [place] [place], [address], 12/18/2022 16:00:20 12/19/19 23 12/18/2022 COMPR EHENS HAYLEE METAB OLIC PANEL creatinine 1.03 mg/dL 0.66-1 .25 Not Available [facility]Lab[facility] [address] [facility] [place], [address], 12/18/2022 16:00:20 12/19/19 23 12/18/2022 COMPR EHENS HAYLEE METAB OLIC PANEL GFR >60 Refer ence Range : [place] ge GFR Healt hy Adult : >60 mL/mi n/1.7 3 m2 Chron ic Kidne y Disea se: 15-60 mL/mi n/1.7 3 m2 Kidne y Failu re: <15/m L/min /1.73 m2 www.n iddk. nih.g ov The MDRD study equat ion has not been valid ated in child diane <18 years of age; pregn ant women ; the elder ly >85 years of age; or in some racia l or ethni c subgr oups, such as sc nics. Outsi de the valid ated elmo eters , estim ated GFR is less accur ate, requi ring clini charley judgm ent on a case- by-ca se basis . Clini charley inter preta tion for other races and ages must be made by the clini nichelle. The MDRD study equat ion has not been valid ated for the evalu ation of serum creat inine relat ed to nutri tacos l statu s or medic ation usage . For perso ns <18 years of age, a pedia tric GFR calcu lator is avail able on the F websi te: https ://new w.jovanny galvan.o rg/pr ofess ional s/kdo qi/gf r_cal culat or Not Available [facility] (Lab) [address] [place], [address], 12/18/2022 16:00:20 12/19/19 23 12/18/2022 COMPR EHENS HAYLEE METAB OLIC PANEL alkaline phosphatase 59 U/L 38-126 Not Available [facility] (Lab) [address] [place], [address], 12/18/2022 16:00:20 12/19/19 23 12/18/2022 COMPR EHENS HAYLEE METAB OLIC PANEL alanine aminotransfe rase 30 U/L 0-50 Not Available [facility] (Lab) [address] [place], [address], 12/18/2022 16:00:20 12/19/19 23 12/18/2022 COMPR EHENS HAYLEE METAB OLIC PANEL aspartate aminotransfe rase 24 U/L 15-46 Not Available [facility] (Lab) [address] [place], [address], 12/18/2022 16:00:20 12/19/19 23 12/18/2022 COMPR EHENS HAYLEE METAB OLIC PANEL bilirubin, total 0.60 mg/dL 0.20-1 .30 Not Available [facility] (Lab) [address] [place], [address], 12/18/2022 16:00:20 12/19/19 23 12/18/2022 COMPR EHENS HAYLEE METAB OLIC PANEL calcium 9.6 mg/dL 8.4-10 .2 Not Available [facility] (Lab) [address] [place], [address], 12/18/2022 16:00:20 12/19/19 23 12/18/2022 COMPR EHENS HAYLEE METAB OLIC PANEL total protein 7.4 g/dL 6.3-8. 2 Not Available [facility] (Lab) [address] [place], [address], 12/18/2022 16:00:20 12/19/19 23 12/18/2022 COMPR EHENS HAYLEE METAB OLIC PANEL albumin 4.5 g/dL 3.4-5. 0 Not Available [facility] (Lab) [address] [place], [address], 12/18/2022 16:00:20 12/19/19 23 12/18/2022 COMPR EHENS HAYLEE METAB OLIC PANEL globulin 2.9 g/dL 2.6-4. 2 Not Available [facility] (Lab) [address] [place], [address], 12/18/2022 16:00:20 12/19/19 23 12/18/2022 COMPR EHENS HAYLEE METAB OLIC PANEL A/G ratio 1.6 ratio 1.0-2. 0 Not Available [facility] (Lab) [address] [place], [address], 12/18/2022 16:00:20 12/19/19 23 12/18/2022 TSH W/REF TERRANCE FT4 TSH with reflex free T4 1.650 uIU/m L 0.465- 4.680 Not Available [facility] (Lab) [address] [place], [address], 12/18/2022 16:35:53 12/19/19 23 12/19/2022 HEMOG LOBIN A1C HA1C 5.9 % 4.0-6. 0 Diabe albert Scree jorge Crite apollo: <5.7% Consi stent with absen ce of diabe albert 5.7-6 .4% Consi stent with incre ased risk for diabe albert (pred iabet es) >OR=6 .5% Consi stent with diabe albert REFER ENCE: Diabe albert Care 2016, 39(Gillis ppl.1 ):s13 -s22 Not Available [facility] (Lab) [address] [place], [address], 12/19/2022 12:36:52 07/02/20 23 07/02/2023 CBC/C OMPLE TE BLD COUNT W/DIF F white blood cells 3.5 x10'3 /uL 4.2-10 .8 low Not Available [facility] (Lab) [address] [place], [address], 07/02/2023 11:16:22 07/02/20 23 07/02/2023 CBC/C OMPLE TE BLD COUNT W/DIF F red blood cells 5.05 x10'6 /uL 4.10-5 .80 Not Available [facility] (Lab) [address] [place], [address], 07/02/2023 11:16:22 07/02/20 23 07/02/2023 CBC/C OMPLE TE BLD COUNT W/DIF F hemoglobin 14.1 g/dL 13.2-1 7.0 Not Available [facility] (Lab) [address] [place], [address], 07/02/2023 11:16:22 07/02/20 23 07/02/2023 CBC/C OMPLE TE BLD COUNT W/DIF F hematocrit 44.5 % 39.3-5 0.0 Not Available [facility] (Lab) [address] [place], [address], 07/02/2023 11:16:22 07/02/20 23 07/02/2023 CBC/C OMPLE TE BLD COUNT W/DIF F mean red cell volume 88.1 fL 80.0-9 7.0 Not Available [facility] (Lab) [address] [place], [address], 07/02/2023 11:16:22 07/02/20 23 07/02/2023 CBC/C OMPLE TE BLD COUNT W/DIF F mean red cell hemoglobin 27.9 pg 27.0-3 3.0 Not Available [facility] (Lab) [address] [place], [address], 07/02/2023 11:16:22 07/02/20 23 07/02/2023 CBC/C OMPLE TE BLD COUNT W/DIF F mean RBC HGB concentratio n 31.7 g/dL 31.0-3 6.0 Not Available [facility] (Lab) [address] [place], [address], 07/02/2023 11:16:22 07/02/20 23 07/02/2023 CBC/C OMPLE TE BLD COUNT W/DIF F red cell distribution width 13.6 % 11.8-1 5.5 Not Available [facility] (Lab) [address] [place], [address], 07/02/2023 11:16:22 07/02/20 23 07/02/2023 CBC/C OMPLE TE BLD COUNT W/DIF F platelets 222 x10'3 /uL 150-40 0 Not Available [facility] (Lab) [address] [place], [address], 07/02/2023 11:16:22 07/02/20 23 07/02/2023 CBC/C OMPLE TE BLD COUNT W/DIF F mean platelet volume 11.4 fL 9.0-12 .4 Not Available [facility] (Lab) [address] [place], [address], 07/02/2023 11:16:22 07/02/20 23 07/02/2023 CBC/C OMPLE TE BLD COUNT W/DIF F neutrophils 37.3 % 39.0-7 2.0 low Not Available [facility] (Lab) [address] [place], [address], 07/02/2023 11:16:22 07/02/20 23 07/02/2023 CBC/C OMPLE TE BLD COUNT W/DIF F lymphocytes 41.5 % 16.0-4 7.0 Not Available [facility] (Lab) [address] [place], [address], 07/02/2023 11:16:22 07/02/20 23 07/02/2023 CBC/C OMPLE TE BLD COUNT W/DIF F monocytes 11.3 % 5.0-12 .0 Not Available [facility] (Lab) [address] [place], [address], 07/02/2023 11:16:22 07/02/20 23 07/02/2023 CBC/C OMPLE TE BLD COUNT W/DIF F eosinophils 9.3 % 1.0-7. 0 high Not Available [facility] (Lab) [address] [place], [address], 07/02/2023 11:16:22 07/02/20 23 07/02/2023 CBC/C OMPLE TE BLD COUNT W/DIF F basophils 0.6 % 0.0-2. 0 Not Available [facility] (Lab) [address] [place], [address], 07/02/2023 11:16:22 07/02/2007/02/2023 CBC/C OMPLE TE BLD COUNT W/DIF F immature granulocytes 0.0 % 0.00-0 .50 Not Available [facility] (Lab) [address] [place], [address], 07/02/2023 11:16:22 07/02/20 23 07/02/2023 CBC/C OMPLE TE BLD COUNT W/DIF F neutrophils, absolute count 1.32 x10'3 /uL 1.5-8. 0 low Not Available [facility] (Lab) [address] [place], [address], 07/02/2023 11:16:22 07/02/20 23 07/02/2023 CBC/C OMPLE TE BLD COUNT W/DIF F lymphocytes, absolute count 1.47 x10'3 /uL 1.07-3 .43 Not Available [facility] (Lab) [address] [place], [address], 07/02/2023 11:16:22 07/02/20 23 07/02/2023 CBC/C OMPLE TE BLD COUNT W/DIF F monocytes, absolute count 0.40 x10'3 /uL 0.29-0 .99 Not Available [facility] (Lab) [address] [place], [address], 07/02/2023 11:16:22 07/02/20 23 07/02/2023 CBC/C OMPLE TE BLD COUNT W/DIF F eosinophils, absolute count 0.33 x10'3 /uL 0.02-0 .53 Not Available [facility] (Lab) [address] [place], [address], 07/02/2023 11:16:22 07/02/20 23 07/02/2023 CBC/C OMPLE TE BLD COUNT W/DIF F basophils, absolute count 0.02 x10'3 /uL 0.01-0 .08 Not Available [facility] (Lab) [address] [place], [address], 07/02/2023 11:16:22 07/02/20 23 07/02/2023 CBC/C OMPLE TE BLD COUNT W/DIF F immature granulocytes ,absolute 0.00 x10'3 /uL 0.00-0 .05 Not Available [facility] (Lab) [address] [place], [address], 07/02/2023 11:16:22 07/02/20 23 07/02/2023 CBC/C OMPLE TE BLD COUNT W/DIF F nucleated red blood cells 0.0 % -0 Not Available [facility] (Lab) [address] [place], [address], 07/02/2023 11:16:22 07/02/20 23 07/02/2023 CBC/C OMPLE TE BLD COUNT W/DIF F NRBC# 0.00 x10'3 /uL Not Available [facility] (Lab) [address] [place] [address], [address], 07/02/2023 11:16:22 07/02/20 23 07/02/2023 LIPID PANEL cholesterol 173 mg/dL 140-19 9 NIH MERON NSUS RECOM MENDA TION FOR ARON STERO L: ADULT CHILD LOW RISK: <200 <170 BORDE RLINE : <200- 239 ----- HIGH RISK: >240 >200 Not Available [facility] (Lab) [address] [place] [address], [address], 07/02/2023 11:29:12 07/02/20 23 07/02/2023 LIPID PANEL triglyceride s 40 mg/dL 0-150 NIH MERON NSUS REPOR T RECOM MENDA TION FOR TRIGL YCERI TRICE: ADULT CHILD LOW RISK: <150 ----- BODER LINE: 150-1 99 ----- HIGH RISK: >200 ----- Not Available [facility] (Lab) [address] [place] [address], [address], 07/02/2023 11:29:12 07/02/20 23 07/02/2023 LIPID PANEL HDL cholesterol 51 mg/dL 40- Not Available [facility] (Lab) [address] [place] [address], [address], 07/02/2023 11:29:12 07/02/20 23 07/02/2023 LIPID PANEL LDL cholesterol, calculated 114 mg/dL 0-130 NIH MERON NSUS REPOR T RECOM MENDA TIONS FOR LDL: ADULT CHILD LOW RISK <130 <110 (OPTI MAL LDL) <100 ----- BORDE RLINE : 130-1 59 ----- HIGH RISK: >160 >130 A TRIGL YCERI DE RESUL T >400 INVAL IDATE S THE CALCU LATIO N FOR LDL FRACT IONAT ION - THE LDL RESUL T WILL NOT BE REPOR JAHAIRA. Not Available [facility] (Lab) [address] [place], [address], 07/02/2023 11:29:12 07/02/20 23 07/02/2023 COMPR EHENS HAYLEE METAB OLIC PANEL sodium 140 mmol/ L 137-14 5 Not Available [facility] (Lab) [address] [place], [address], 07/02/2023 11:29:20 07/02/20 23 07/02/2023 COMPR EHENS HAYLEE METAB OLIC PANEL potassium 4.0 mmol/ L 3.5-5. 1 Not Available [facility] (Lab) [address] [place], [address], 07/02/2023 11:29:20 07/02/20 23 07/02/2023 COMPR EHENS HAYLEE METAB OLIC PANEL chloride 106 mmol/ L 98-107 Not Available [facility] (Lab) [address] [place], [address], 07/02/2023 11:29:20 07/02/20 23 07/02/2023 COMPR EHENS HAYLEE METAB OLIC PANEL carbon dioxide 28 mmol/ L 22-30 Not Available [facility] (Lab) [address] [place], [address], 07/02/2023 11:29:20 07/02/20 23 07/02/2023 COMPR EHENS HAYLEE METAB OLIC PANEL anion gap 10.0 mmol/ L 14-22 low Not Available [facility] (Lab) [address] [place], [address], 07/02/2023 11:29:20 07/02/20 23 07/02/2023 COMPR EHENS HAYLEE METAB OLIC PANEL glucose 91 mg/dL 70-99 Not Available [facility] (Lab) [address] [place], [address], 07/02/2023 11:29:20 07/02/20 23 07/02/2023 COMPR EHENS HAYLEE METAB OLIC PANEL BUN 15 mg/dL 8-19 Not Available [facility] (Lab) [address] [place], [address], 07/02/2023 11:29:20 07/02/20 23 07/02/2023 COMPR EHENS HAYLEE METAB OLIC PANEL creatinine 1.07 mg/dL 0.66-1 .25 Not Available [facility] (Lab) [address] [place], [address], 07/02/2023 11:29:20 07/02/20 23 07/02/2023 COMPR EHENS HAYLEE METAB OLIC PANEL GFR >60 Refer ence Range : [place] ge GFR Healt hy Adult : >60 mL/mi n/1.7 3 m2 Chron ic Kidne y Disea se: 15-60 mL/mi n/1.7 3 m2 Kidne y Failu re: <15/m L/min /1.73 m2 www.n iddk. nih.g ov The MDRD study equat ion has not been valid ated in child diane <18 years of age; pregn ant women ; the elder ly >85 years of age; or in some racia l or ethni c subgr oups, such as Diana nics. Outsi de the valid ated elmo eters , estim ated GFR is less accur ate, requi ring clini charley judgm ent on a case- by-ca se basis . Clini charley inter preta tion for other races and ages must be made by the clini nichelle. The MDRD study equat ion has not been valid ated for the evalu ation of serum creat inine relat ed to nutri tacos l statu s or medic ation usage . For perso ns <18 years of age, a pedia tric GFR calcu lator is avail able on the F websi te: https ://new galvan.o rg/pr ofess ional s/kdo qi/gf r_cal culat or Not Available [facility] (Lab) [address] [place], [address], 07/02/2023 11:29:20 07/02/20 23 07/02/2023 COMPR EHENS HAYLEE METAB OLIC PANEL alkaline phosphatase 48 U/L 38-126 Not Available [facility] (Lab) [address] [place], [address], 07/02/2023 11:29:20 07/02/20 23 07/02/2023 COMPR EHENS HAYLEE METAB OLIC PANEL alanine aminotransfe rase 28 U/L 0-50 Not Available [facility] (Lab) [address] [place], [address], 07/02/2023 11:29:20 07/02/20 23 07/02/2023 COMPR EHENS HAYLEE METAB OLIC PANEL aspartate aminotransfe rase 22 U/L 15-46 Not Available [facility] (Lab) [address] [place], [address], 07/02/2023 11:29:20 07/02/20 23 07/02/2023 COMPR EHENS HAYLEE METAB OLIC PANEL bilirubin, total 0.40 mg/dL 0.20-1 .30 Not Available [facility] (Lab) [address] [place], [address], 07/02/2023 11:29:20 07/02/20 23 07/02/2023 COMPR EHENS HAYLEE METAB OLIC PANEL calcium 9.5 mg/dL 8.4-10 .2 Not Available [facility] (Lab) [address] [place], [address], 07/02/2023 11:29:20 07/02/20 23 07/02/2023 COMPR EHENS HAYLEE METAB OLIC PANEL total protein 6.9 g/dL 6.3-8. 2 Not Available [facility] (Lab) [address] [place], [address], 07/02/2023 11:29:20 07/02/20 23 07/02/2023 COMPR EHENS HAYLEE METAB OLIC PANEL albumin 4.2 g/dL 3.4-5. 0 Not Available [facility] (Lab) [address] [place], [address], 07/02/2023 11:29:20 07/02/20 23 07/02/2023 COMPR EHENS HAYLEE METAB OLIC PANEL globulin 2.7 g/dL 2.6-4. 2 Not Available [facility] (Lab) [address] [place], [address], 07/02/2023 11:29:20 07/02/20 23 07/02/2023 COMPR EHENS HAYLEE METAB OLIC PANEL A/G ratio 1.6 ratio 1.0-2. 0 Not Available [facility] (Lab) [address] [place], [address], 07/02/2023 11:29:20 07/02/20 23 07/02/2023 TSH W/REF TERRANCE FT4 TSH with reflex free T4 1.720 uIU/m L 0.465- 4.680 Not Available [facility] (Lab) [address] [place], [address], 07/02/2023 12:17:11 07/02/20 23 07/02/2023 MICRO ALBUM N RNDM W/CRE AT RATIO ur creat 239.68 mg/dL REFER ENCE RANGE NOT ESTAB LISHE D FOR RANDO M URINE CREAT ININE Not Available [facility] (Lab) [address] [place], [address], 07/02/2023 14:05:47 07/02/2007/02/2023 MICRO ALBUM N RNDM W/CRE AT RATIO microalbumin , urine 7.3 mg/L 0.0-16 .6 Not Available [facility] (Lab) [address] [place], [address], 07/02/2023 14:05:47 07/02/20 23 07/02/2023 MICRO ALBUM N RNDM W/CRE AT RATIO microalbumin /creatinine ratio 3 mcg/m g 0-29 THE AMERI CAN DIABE ALBERT ASSOC IATIO N DEFIN ES ABNOR MALIT IES IN ALBUM IN EXCRE TION FOLLO WS: CATEG ORY RESUL T (MCG/ MG CREAT ININE ) MAGALY L <30 MICRO ALBUM INURI A 30-29 9 CLINI CHARLEY ALBUM INURI A > OR = 300 THE ADA RECOM MENDS THAT 2 OF 2 SPECI MENS COLLE CTED WITHI N A 3- TO 6-MON TH PERIO D BE ABNOR MAL BEFOR E CONSI IRASEMA G A PATIE NT TO HAVE CROSS ED ONE OF THESE DIAGN OSTIC THRES HOLDS . REFER ENCE: DIABE ALBERT CARE, VOL. 26: [id number] , 2002 Not Available [facility] (Lab) [address] [place], [address], 07/02/2023 14:05:47 07/02/20 23 07/02/2023 HEMOG LOBIN A1C HA1C 5.7 % 4.0-6. 0 Diabe albert Scree jorge Crite apollo: <5.7% Consi stent with absen ce of diabe albert 5.7-6 .4% Consi stent with incre ased risk for diabe albert (pred iabet es) >OR=6 .5% Consi stent with diabe albert REFER ENCE: Diabe albert Care 2016, 39(Gillis ppl.1 ):s13 -s22 Not Available [facility] (Lab) [address] [place], [address], 07/02/2023 14:01:12 12/24/19 24 12/24/2023 LIPID PANEL cholesterol 108 mg/dL 140-19 9 low NIH MERON NSUS RECOM MENDA TION FOR ARON STERO L: ADULT CHILD LOW RISK: <200 <170 BORDE RLINE : <200- 239 ----- HIGH RISK: >240 >200 Not Available [facility] (Lab) [address] [place], [address], 12/24/2023 10:53:49 12/24/19 24 12/24/2023 LIPID PANEL triglyceride s 40 mg/dL 0-150 NIH MERON NSUS REPOR T RECOM MENDA TION FOR TRIGL YCERI TRICE: ADULT CHILD LOW RISK: <150 ----- BODER LINE: 150-1 99 ----- HIGH RISK: >200 ----- Not Available [facility] (Lab) [address] [place], [address], 12/24/2023 10:53:49 12/24/19 24 12/24/2023 LIPID PANEL HDL cholesterol 56 mg/dL 40- Not Available [facility] (Lab) [address] [place], [address], 12/24/2023 10:53:49 12/24/19 24 12/24/2023 LIPID PANEL LDL cholesterol, calculated 44 mg/dL 0-130 NIH MERON NSUS REPOR T RECOM MENDA TIONS FOR LDL: ADULT CHILD LOW RISK <130 <110 (OPTI MAL LDL) <100 ----- BORDE RLINE : 130-1 59 ----- HIGH RISK: >160 >130 A TRIGL YCERI DE RESUL T >400 INVAL IDATE S THE CALCU LATIO N FOR LDL FRACT IONAT ION - THE LDL RESUL T WILL NOT BE REPOR JAHAIRA. Not Available [facility] (Lab) [address] [place], [address], 12/24/2023 10:53:49 12/24/19 24 12/24/2023 COMP MET PANEL /LIVE R sodium 141 mmol/ L 137-14 5 Not Available [facility] (Lab) [address] [place], [address], 12/24/2023 10:54:00 12/24/19 24 12/24/2023 COMP MET PANEL /LIVE R potassium 4.5 mmol/ L 3.5-5. 1 Not Available [facility] (Lab) [address] [place], [address], 12/24/2023 10:54:00 12/24/19 24 12/24/2023 COMP MET PANEL /LIVE R chloride 106 mmol/ L 98-107 Not Available [facility] (Lab) [address] [place], [address], 12/24/2023 10:54:00 12/24/19 24 12/24/2023 COMP MET PANEL /LIVE R carbon dioxide 31 mmol/ L 22-30 high Not Available [facility] (Lab) [address] [place], [address], 12/24/2023 10:54:00 12/24/19 24 12/24/2023 COMP MET PANEL /LIVE R anion gap 8.5 mmol/ L 14-22 low Not Available [facility] (Lab) [address] [place], [address], 12/24/2023 10:54:00 12/24/19 24 12/24/2023 COMP MET PANEL /LIVE R glucose 93 mg/dL 70-99 Not Available [facility] (Lab) [address] [place], [address], 12/24/2023 10:54:00 12/24/19 24 12/24/2023 COMP MET PANEL /LIVE R BUN 18 mg/dL 8-19 Not Available [facility] (Lab) [address] [place], [address], 12/24/2023 10:54:00 12/24/19 24 12/24/2023 COMP MET PANEL /LIVE R creatinine 1.00 mg/dL 0.66-1 .25 Not Available [facility] (Lab) [address] [place], [address], 12/24/2023 10:54:00 12/24/19 24 12/24/2023 COMP MET PANEL /LIVE R GFR >60 Refer ence Range : [place] GFR Healt hy Adult : >60 mL/mi n/1.7 3 m2 Chron ic Kidne y Disea se: 15-60 mL/mi n/1.7 3 m2 Kidne y Failu re: <15/m L/min /1.73 m2 www.n iddk. nih.g ov The MDRD study equat ion has not been valid ated in child diane <18 years of age; pregn ant women ; the elder ly >85 years of age; or in some racia l or ethni c subgr oups, such as Hispa nics. Outsi de the valid ated elmo eters , estim ated GFR is less accur ate, requi ring clini charley judgm ent on a case- by-ca se basis . Clini charley inter preta tion for other races and ages must be made by the clini nichelle. The MDRD study equat ion has not been valid ated for the evalu ation of serum creat inine relat ed to nutri tacos l statu s or medic ation usage . For perso ns <18 years of age, a pedia tric GFR calcu lator is avail able on the [facility] websi te: https ://new w.jovanny galvan.o rg/pr ofess ional s/kdo qi/gf r_cal culat or Not Available [facility] (Lab) [address] [place], [address], 12/24/2023 10:54:00 12/24/19 24 12/24/2023 COMP MET PANEL /LIVE R alkaline phosphatase 59 U/L 38-126 Not Available [facility] (Lab) [address] [place], [address], 12/24/2023 10:54:00 12/24/19 24 12/24/2023 COMP MET PANEL /LIVE R alanine aminotransfe rase 36 U/L 0-50 Not Available [facility] (Lab) [address] [place], [address], 12/24/2023 10:54:00 12/24/19 24 12/24/2023 COMP MET PANEL /LIVE R aspartate aminotransfe rase 26 U/L 15-46 Not Available [facility] (Lab) [address] [place], [address], 12/24/2023 10:54:00 12/24/19 24 12/24/2023 COMP MET PANEL /LIVE R bilirubin, total 0.40 mg/dL 0.20-1 .30 Not Available [facility] (Lab) [address] [place], [address], 12/24/2023 10:54:00 12/24/19 24 12/24/2023 COMP MET PANEL /LIVE R bilirubin, conjugated (direct) 0.00 mg/dL 0.00-0 .30 Not Available [facility] (Lab) [address] [place], [address], 12/24/2023 10:54:00 12/24/19 24 12/24/2023 COMP MET PANEL /LIVE R biliurubin,u ncong. (indirect) 0.20 mg/dL 0.00-1 .1 Not Available [facility] (Lab) [address] [place], [address], 12/24/2023 10:54:00 12/24/19 24 12/24/2023 COMP MET PANEL /LIVE R calcium 9.5 mg/dL 8.4-10 .2 Not Available [facility] (Lab) [address] [place], [address], 12/24/2023 10:54:00 12/24/19 24 12/24/2023 COMP MET PANEL /LIVE R total protein 6.8 g/dL 6.3-8. 2 Not Available [facility] (Lab) [address] [place], [address], 12/24/2023 10:54:00 12/24/19 24 12/24/2023 COMP MET PANEL /LIVE R albumin 4.5 g/dL 3.4-5. 0 Not Available [facility] (Lab) [address] [place], [address], 12/24/2023 10:54:00 12/24/19 24 12/24/2023 COMP MET PANEL /LIVE R globulin 2.3 g/dL 2.6-4. 2 low Not Available [facility] (Lab) [address] [place], [address], 12/24/2023 10:54:00 12/24/19 24 12/24/2023 COMP MET PANEL /LIVE R A/G ratio 2.0 ratio 1.0-2. 0 Not Available [facility] (Lab) [address] [place], [address], 12/24/2023 10:54:00 12/24/19 24 12/24/2023 CBC/C OMPLE TE BLD COUNT W/DIF F white blood cells 3.7 x10'3 /uL 4.2-10 .8 low Not Available [facility] (Lab) [address] [place], [address], 12/24/2023 11:02:31 12/24/19 24 12/24/2023 CBC/C OMPLE TE BLD COUNT W/DIF F red blood cells 5.10 x10'6 /uL 4.10-5 .80 Not Available [facility] (Lab) [address] [place], [address], 12/24/2023 11:02:31 12/24/19 24 12/24/2023 CBC/C OMPLE TE BLD COUNT W/DIF F hemoglobin 14.1 g/dL 13.2-1 7.0 Not Available [facility] (Lab) [address] [place], [address], 12/24/2023 11:02:31 12/24/19 24 12/24/2023 CBC/C OMPLE TE BLD COUNT W/DIF F hematocrit 44.2 % 39.3-5 0.0 Not Available [facility] (Lab) [address] [place], [address], 12/24/2023 11:02:31 12/24/19 24 12/24/2023 CBC/C OMPLE TE BLD COUNT W/DIF F mean red cell volume 86.7 fL 80.0-9 7.0 Not Available [facility] (Lab) [address] [place], [address], 12/24/2023 11:02:31 12/24/19 24 12/24/2023 CBC/C OMPLE TE BLD COUNT W/DIF F mean red cell hemoglobin 27.6 pg 27.0-3 3.0 Not Available [facility] (Lab) [address] [facility] [place], [address], 12/24/2023 11:02:31 12/24/19 24 12/24/2023 CBC/C OMPLE TE BLD COUNT W/DIF F mean RBC HGB concentratio n 31.9 g/dL 31.0-3 6.0 Not Available [facility] (Lab) [address] [place], [address], 12/24/2023 11:02:31 12/24/19 24 12/24/2023 CBC/C OMPLE TE BLD COUNT W/DIF F red cell distribution width 13.8 % 11.8-1 5.5 Not Available [facility] (Lab) [address] [place], [address], 12/24/2023 11:02:31 12/24/19 24 12/24/2023 CBC/C OMPLE TE BLD COUNT W/DIF F platelets 238 x10'3 /uL 150-40 0 Not Available [facility] (Lab) [address] [place], [address], 12/24/2023 11:02:31 12/24/19 24 12/24/2023 CBC/C OMPLE TE BLD COUNT W/DIF F mean platelet volume 10.8 fL 9.0-12 .4 Not Available [facility] (Lab) [address] [place], [address], 12/24/2023 11:02:31 12/24/19 24 12/24/2023 CBC/C OMPLE TE BLD COUNT W/DIF F neutrophils 38.9 % 39.0-7 2.0 low Not Available [facility] (Lab) [address] [place], [address], 12/24/2023 11:02:31 12/24/19 24 12/24/2023 CBC/C OMPLE TE BLD COUNT W/DIF F lymphocytes 43.6 % 16.0-4 7.0 Not Available [facility] (Lab) [address] [place], [address], 12/24/2023 11:02:31 12/24/19 24 12/24/2023 CBC/C OMPLE TE BLD COUNT W/DIF F monocytes 10.1 % 5.0-12 .0 Not Available [facility] (Lab) [address] [place], [address], 12/24/2023 11:02:31 12/24/19 24 12/24/2023 CBC/C OMPLE TE BLD COUNT W/DIF F eosinophils 6.8 % 1.0-7. 0 Not Available [facility] (Lab) [address] [place], [address], 12/24/2023 11:02:31 12/24/19 24 12/24/2023 CBC/C OMPLE TE BLD COUNT W/DIF F basophils 0.3 % 0.0-2. 0 Not Available [facility] (Lab) [address] [place], [address], 12/24/2023 11:02:31 12/24/19 24 12/24/2023 CBC/C OMPLE TE BLD COUNT W/DIF F immature granulocytes 0.3 % 0.00-0 .50 Not Available [facility] (Lab) [address] [place], [address], 12/24/2023 11:02:31 12/24/19 24 12/24/2023 CBC/C OMPLE TE BLD COUNT W/DIF F neutrophils, absolute count 1.43 x10'3 /uL 1.5-8. 0 low Not Available [facility] (Lab) [address] [place], [address], 12/24/2023 11:02:31 12/24/19 24 12/24/2023 CBC/C OMPLE TE BLD COUNT W/DIF F lymphocytes, absolute count 1.60 x10'3 /uL 1.07-3 .43 Not Available [facility] (Lab) [address] [place], [address], 12/24/2023 11:02:31 12/24/19 24 12/24/2023 CBC/C OMPLE TE BLD COUNT W/DIF F monocytes, absolute count 0.37 x10'3 /uL 0.29-0 .99 Not Available [facility] (Lab) [address] [place], [address], 12/24/2023 11:02:31 12/24/19 24 12/24/2023 CBC/C OMPLE TE BLD COUNT W/DIF F eosinophils, absolute count 0.25 x10'3 /uL 0.02-0 .53 Not Available [facility] (Lab) [address] [place], [address], 12/24/2023 11:02:31 12/24/19 24 12/24/2023 CBC/C OMPLE TE BLD COUNT W/DIF F basophils, absolute count 0.01 x10'3 /uL 0.01-0 .08 Not Available [facility] (Lab) [address] [place], [address], 12/24/2023 11:02:31 12/24/19 24 12/24/2023 CBC/C OMPLE TE BLD COUNT W/DIF F immature granulocytes ,absolute 0.01 x10'3 /uL 0.00-0 .05 Not Available [facility] (Lab) [address] [place], [address], 12/24/2023 11:02:31 12/24/19 24 12/24/2023 CBC/C OMPLE TE BLD COUNT W/DIF F nucleated red blood cells 0.0 % -0 Not Available [facility] (Lab) [address] [place], [address], 12/24/2023 11:02:31 12/24/19 24 12/24/2023 CBC/C OMPLE TE BLD COUNT W/DIF F NRBC# 0.00 x10'3 /uL Not Available [facility] (Lab) [address] [place], [address], 12/24/2023 11:02:31 12/24/19 24 12/24/2023 MICRO ALBUM IN RANDO M URINE microalbumin , urine <6.0 mg/L 0.0-16 .6 Not Available [facility] (Lab) [address] [place], [address], 12/24/2023 11:05:59 12/24/19 24 12/24/2023 VITAM IN D 25-HY DROXY vd25oh 23.0 NG/mL 30-100 low Vitam in D Statu s: Defic ient: <20 ng/mL Insuf ficie nt: 20-29 ng/mL Suffi cient : 30-10 0 ng/mL Not Available [facility] (Lab) [address] [place], [address], 12/24/2023 11:06:39 12/24/19 24 12/24/2023 TSH W/REF TERRANCE FT4 TSH with reflex free T4 1.330 uIU/m L 0.465- 4.680 Not Available [facility] (Lab) [address] [place], [address], 12/24/2023 11:20:54 12/24/19 24 12/24/2023 HEMOG LOBIN A1C HA1C 5.7 % 4.0-6. 0 Diabe albert Scree jorge Crite apollo: <5.7% Consi stent with absen ce of diabe albert 5.7-6 .4% Consi stent with incre ased risk for diabe albert (pred iabet es) >OR=6 .5% Consi stent with diabe albert REFER ENCE: Diabe albert Care 2016, 39(Gillis ppl.1 ):s13 -s22 Not Available [facility] (Lab) [address] [place], [address], 12/24/2023 12:52:07 Result Notes None recorded. Problems Name Problem SNOMED Code Status Onset Date Resolution Date Notes Provider Name and Address Organization Details Recorded Time Leukocytosis 330920615 Active 2021 Not Available [facility] 3 02:57:13 Prediabetes 960295296 Active 2021 Not Available [facility] 3 02:57:13 Leukopenia 52390261 Active 2022 Lukas rojas MD [address], [place] [address], [place], [address] , [employer] [facility] [employer] [facility] 3 14:32:15 Hyperlipidemi a 10877330 Active 2022 Lukas rojas MD [address], [address], [place], [address] , [employer] [facility] [place] [facility] 3 14:32:24 Premature ejaculation 47303906 Active 2022 Lukas rojas MD [address], [address], [place], [address] , 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 [employer] [facility] 3 14:04:45 Constipation 77923286 Active 2023 Cain Cote MD [address] [facility], [facility] [place] [address], [place], [address] , [facility] [employer] [facility] 4 15:32:11 Problem Notes None recorded. Medical Equipment None Reported. Allergies Allergen ID Allergen Name Allergen Category Reaction Reaction Severity Criticality Documentation Date Start Date Code Code System Note Provider Name and Address Organization Details Recorded Time 5579 ibuprofen medicatio n Not available Not available Not available 10/25/2022 5640 RxNorm Not Available [facility] 3 03:14:13 Medications Name Sig Start Date Stop Date Status Note LastModified by Organization Details LastModified Time metformin 500 mg tablet TAKE 1 TABLET BY MOUTH TWICE DAILY 2023 active Not Available Not Available Not Avai lable sulfamethoxa zole 400 mg-trimethop rim 80 mg tablet TK 1 T PO BID 02/24 completed Not Available Not Available Not Available prednisone 20 mg tablet 02/24 completed Not Available Not Available Not Available ergocalcifer ol (vitamin D2) 1,250 mcg (50,000 unit) capsule Take 1 capsule WEEKLY for 8 weeks 11/15 completed Not Available Not Available Not Available rosuvastatin 40 mg tablet TAKE 1 TABLET BY MOUTH EVERY DAY 2022 active Not Available Not Available Not Avai lable cholecalcife rol (vitamin D3) 1,250 mcg (50,000 unit) capsule TAKE 1 CAPSULE BY MOUTH ONCE A WEEK active Not Available Not Available No t Available Zipsor 25 mg capsule Take 1 capsule twice a day by oral route as needed for 30 days. 09/30 completed Not Available Not Available Not Available Vitals Date Recorded Body height Body mass index (BMI) Body weight Body temperature Heart rate Systolic blood pressure Diastolic blood pressure Provider Name and Address Organization Details Last Updated DateTime 3 174.63 cm 24.8 kg/m2 71666.9 3 g 97.6 [degF] 72 /min 124 mm[Hg] 70 mm[Hg] PHILIP Colon [facility] [employer] [facility] 3 10:08:43 Date Recorded Body height Body mass index (BMI) Body weight Body temperature Heart rate Oxygen saturation Oxygen saturation in Arterial blood by Pulse oximetry Systolic blood pressure Diastolic blood pressure Provider Name and Address Organization Details Last Updated DateTime 3 174.63 cm 26.2 kg/m2 46872.2 6 g 97.7 [degF] 75 /min 97 % 97 % 124 mm[Hg] 74 mm[Hg] Joselin Conde [facility] [employer] [facility] 3 14:11:42 Date Recorded Body height Body mass index (BMI) Body weight Body temperature Heart rate Oxygen saturation Oxygen saturation in Arterial blood by Pulse oximetry Systolic blood pressure Diastolic blood pressure Provider Name and Address Organization Details Last Updated DateTime 4 174.63 cm 24.5 kg/m2 05998.7 4 g 98.7 [degF] 82 /min 99 % 99 % 120 mm[Hg] 66 mm[Hg] Clarice Melvin [facility] [employer] [facility] 4 15:27:25 Date Recorded Body height Heart rate Body temperature Body mass index (BMI) Body weight Oxygen saturation Oxygen saturation in Arterial blood by Pulse oximetry Systolic blood pressure Diastolic blood pressure Provider Name and Address Organization Details Last Updated DateTime 4 174.63 cm 76 /min 97.1 [degF] 24.2 kg/m2 98563.5 6 g 99 % 99 % 111 mm[Hg] 65 mm[Hg] Litzy Noonan [facility] [employer] [facility] 4 15:00:01 Date Recorded Body mass index (BMI) Body height Heart rate Body temperature Body weight Systolic blood pressure Diastolic blood pressure Provider Name and Address Organization Details Last Updated DateTime 2 25.6 kg/m2 174.63 cm 78 /min 97.8 [degF] 40195.8 9 g 116 mm[Hg] 68 mm[Hg] Not Available [employer] 3 02:55:08 Social History Question Answer Notes LastModified by Organizat ion Details LastModified Time Tobacco Smoking Status Never Smoker Not Available [facility] 10/25/2022 02:45:32 Do You Have An Advance Directive? No [id number].[id number] Information not available 10/25/2022 What Is Your Level Of Alcohol Consumption? None MIGRATION.754963 6791 Information not available 10/25/2022 What Is Your Level Of Caffeine Consumption? Occasional MIGRATION.173528 0622 Information not available 10/25/2022 How Much Tobacco Do You Chew? None MIGRATION.101941 9345 Information not available 10/25/2022 In The 14 Days Before Symptom Onset, Have You Had Close Contact With A Laboratory-confir med COVID-19 While That Case Was Ill? No MIGRATION.525166 3534 Information not available 10/25/2022 In The 14 Days Before Symptom Onset, Have You Had Close Contact With A Person Who Is Under Investigation For COVID-19 While That Person Was Ill? No MIGRATION.841329 2779 Information not available 10/25/2022 Are You Currently Employed? Yes Information not available 01/02/2023 What Type Of Diet Are You Following? REGULAR MIGRATION.017126 6976 Information not available 10/25/2022 Which Illicit Or Recreational Drugs Have You Used? None MIGRATION.946372 3109 Information not available 10/25/2022 Do You Or Have You Ever Used E-cigarettes Or Vape? Never Used Electronic Cigarettes MIGRATION.762288 9221 Information not available 10/25/2022 What Is The Highest Grade Or Level Of School You Have Completed Or The Highest Degree You Have Received? [id number] MIGRATION.230586 6538 Information not available 10/25/2022 What Is Your Occupation? [employer] MIGRATION.099028 4758 Information not available 10/25/2022 Have There Been Any Changes To Your Family Or Social Situation? No MIGRATION.660365 2853 Information not available 10/25/2022 What Is The Fluoride Status Of Your Home? Unknown MIGRATION.063741 1000 Information not available 10/25/2022 Are There Any Guns Present In Your Home? Yes MIGRATION.053027 2747 Information not available 10/25/2022 Do You Use Insect Repellent Routinely? Yes MIGRATION.720116 4419 Information not available 10/25/2022 Where Do You Live? Apartment MIGRATION.248616 7168 Information not available 10/25/2022 Do You Have A Medical Power Of Bottom Cager? No MIGRATION.199492 3541 Information not available 10/25/2022 What Was The Date Of Your Most Recent Tobacco Screening? 01/10/2024 [email or web address] Information not available 01/10/2024 Do You Have Any Pets? No MIGRATION.013344 9603 Information not available 10/25/2022 What Is Your Relationship Status? MIGRATION.064612 7270 Information not available 10/25/2022 Do You Use Your Seat Belt Or Car Seat Routinely? Yes Information not available 01/02/2023 Do You Have Smoke And Carbon Monoxide Detectors In Your Home? Yes MIGRATION.910739 5896 Information not available 10/25/2022 Are You Passively Exposed To Smoke? No MIGRATION.619702 0064 Information not available 10/25/2022 Do You Or Have You Ever Used Smokeless Tobacco? Never Used Smokeless Tobacco MIGRATION.929794 5348 Information not available 10/25/2022 Are There Any Smokers In Your House? No MIGRATION.648094 2064 Information not available 10/25/2022 How Much Tobacco Do You Smoke? No MIGRATION.180205 7277 Information not available 10/25/2022 Do You Feel Stressed (tense, Restless, Nervous, Or Anxious, Or Unable To Sleep At Night)? [id number] MIGRATION.816492 6367 Information not available 10/25/2022 Do You Use Any Illicit Or Recreational Drugs? No MIGRATION.381678 6057 Information not available 10/25/2022 Do You Use Sunscreen Routinely? No MIGRATION.187905 9544 Information not available 10/25/2022 Has Tobacco Cessation Counseling Been Provided? No N/a MIGRATION.277395 9575 Information not available 10/25/2022 Have You Recently Traveled Abroad? No MIGRATION.636042 9768 Information not available 10/25/2022 Do You Have Any Dietary Restrictions? No MIGRATION.716508 6423 Information not available 10/25/2022 Do You Or Have You Ever Used Any Other Forms Of Tobacco Or Nicotine? No MIGRATION.947066 4073 Information not available 10/25/2022 Sex: Male Functional Status Question Answer Note LastModified by Organizat ion Details LastModified Time What is your exercise level? Moderate MIGRATION.[id number] Information not available 10/25/2022 Mental Status None recorded. Family History Relationship Description Onset Age of this Age Resolved Age Notes LastModified by Organization Details LastModified Time Mother Heart disease [id number] Not available 10/25/2022 02:46:59 Mother Malignant tumor of breast MIGRATION.683 [id number] Not available 10/25/2022 02:46:59 Father Diabetes mellitus MIGRATION.796 [id number] Not available 10/25/2022 02:46:59 Father Pulmonary emphysema MIGRATION.527 [id number] Not available 10/25/2022 02:46:59 Medical History Condition Response NERVE DISEASE N BLINDNESS N RHEUMATIC FEVER N KIDNEY STONES N BLADDER PROBLEMS N MRSA N OTHER # 1 N POLIO N LUNG DISEASE/DISORDER N HISTORY OF DRUG ABUSE N RADIATION / CHEMOTHERAPY N COPD N Other # 2 N BLOOD DISEASES N EAR OR HEARING PROBLEMS N MUMPS N SHINGLES N BOWEL PROBLEMS N DEPRESSION (INCLUDING POST ) N STROKE/TIA N ULCERS N BENIGN PROSTATIC HYPERPLASIA N MEASLES N HYPOTENSION N MYOCARDIAL INFARCTION N OBESITY N GERD/NAUSEA N ANEURYSM N URINARY/BLADDER/KIDNEY PROBLEMS N CORONARY ARTERY DISEASE (CAD) N ADDICTION CONCERNS N ENDOMETRIOSIS N Impotence N USE OF BLOOD THINNERS N SKIN PROBLEMS N GASTROINTESTINAL DISORDER N PERIPHERAL VASCULAR DISEASE N MUSCLE,JOINT OR BONE PROBLEMS N GASTROINTESTINAL BLEEDING N BLOOD CLOTS N ASTHMA N CATARACTS N ERECTILE DYSFUNCTION N VARICOSITIES N GI PROBLEMS N Low Testosterone N INFERTILITY N AIDS/HIV N CHEMOTHERAPY / RADIATION N LIVER DISEASE N MALE HYPOGONADISM N HYPERTENSION N Deficiency N TOURETTE'S N ANXIETY DISORDER N BLOOD TRANSFUSION N ANEMIA/BLOOD DISORDER N CHRONIC EAR INFECTIONS N BRONCHITIS N TUBERCULOSIS N GLAUCOMA N FOOT PROBLEM N DIVERTICULITIS N CHICKENPOX N SLEEP APNEA N INFECTIOUS DISEASE N HEART ARRHYTHMIA N PROSTATE N INSOMNIA N HIGH CHOLESTEROL / HYPERLIPIDEMIA Y HYPERTHYROIDISM N EYE PROBLEMS N EDEMA N CHRONIC PAIN SYNDROME N HYPOTHYROIDISM N CAROTID BLOCKAGE N CONSTIPATION N BACK / NECK PROBLEMS N ATHEROSCLEROSIS N BREAST PROBLEMS N DIALYSIS N ECZEMA N OSTEOPOROSIS N ARTHRITIS N APPENDICITIS N DIABETES, TYPE N BAD TEETH N ENT N HEARTBURN / REFLUX N AUTISM SPECTRUM DISORDER (ASD) N HEPATITIS / LIVER DISEASE N GOUT N SLEEP DISORDER N ALZHEIMER'S DISEASE N Brain Problems N HERPES N DEMENTIA N HEADACHES/MIGRAINES N SEIZURES/EPILEPSY N VASCULAR DISEASE N PACEMAKER N Blood Disorder Y DIZZINESS N HEART DISEASE/HEART PROBLEMS N KIDNEY DISEASE N MULTIPLE SCLEROSIS N CARDIAC ARRHYTHMIA N CANCER: SPECIFY N ATRIAL FIBRILLATION N Gall Stones N PULMONARY EMBOLISM N AUTOIMMUNE DISEASE N Immunizations Vaccine Type Date Status Note Provider Nam e and Address Organization Details Recorded Time COVID-19, mRNA, LNP-S, PF, 30 mcg/0.3 mL dose 05/15/2021 completed Not Available [facility] 3 03:14:03 COVID-19, mRNA, LNP-S, PF, 30 mcg/0.3 mL dose 04/24/2021 completed Not Available [facility] 3 03:14:03 Influenza, split virus, quadrivalent, PF 07/04/2022 completed Not Available [facility] 3 03:14:03 Influenza, split virus, quadrivalent, PF 06/05/2019 completed Not Available [facility] 3 03:14:03 Tdap 06/04/2018 completed Not Available [facility] 10/25/2022 03:14:03 Influenza, split virus, quadrivalent, PF 06/04/2018 completed Not Available [facility] 3 03:14:03 Influenza, split virus, quadrivalent, PF 07/23/2023 completed BHUP[employer]ER [place], [place] [employer] 07/23/2023 14:46:57 Past Encounters Encounter ID Performer Location Encounter Start Date Encounter Closed Date Diagnosis/Indication Diagnosis SNOMED-CT Code Diagnosis ICD10 Code Diagnosis Note [id number] [facility] [place] [address] [address] 11/04/2020 00:00:00 11/04/2020 13:52:25 [id number] [facility] [place] [address] [place] [address] Ave[address] [address] 05/17/2021 00:00:00 05/17/2021 18:29:11 [id number] [facility] Internal [facility] [place] [address] [place] [address] Ave[address] [address] 11/15/2021 00:00:00 11/15/2021 18:21:28 [id number] [facility] Internal [facility] [place] [address] [place] [address] Ave[address] [address] 12/27/2021 00:00:00 12/27/2021 17:49:49 [id number] [facility] Internal Med [facility] [place] [address] [facility] [place] [address] [place] [address] 07/04/2022 00:00:00 07/04/2022 10:44:40 [id number] Lukas rojas MD [facility] Internal Med [facility] [place] [address] [facility] [place] [address] [place] [address] 01/02/2023 09:57:18 01/02/2023 10:29:06 Screening - NAD 231564630 Z13.9 UTD yearly flu shotUTD Tdap 06/04/18UT D on COVID 19 vaccine, follow all CDC guidelines RTC in 6 monthsDo labsER if worseHe did verbalize his understand ing of the above Leukopenia 57283476 D72. 819 WBC 12/26/2021 : Much improved Get labsHe has seen Dr Real in the past Dr Pizarro Hyperlipidemia 90386285 E78.5 On rosuvastat in 40mg dailyGet labs Prediabetes 688532639 R7 3.03 On metformin 500mg po bidGet labs He does see an eye doctor in [facility] Premature ejaculation 44 783839 F52.4 Feels that he does have this, will refer to urology [id number] Lukas rojas MD [facility] Internal Med [address] [place] [address] 07/23/2023 14:01:29 2023 10:16:47 Screening - NAD 563530785 Z13.9 UTD yearly flu shotUTD Tdap 06/04/18UT D on COVID 19 vaccine, follow all CDC guidelines RTC in 6 monthsDo labsER if worseHe did verbalize his understand ing of the above Leukopenia 25655509 D72. 819 WBC 12/26/2021 : Much improved Get labsHe has seen Dr Real in the past Dr Pizarro 01/01/2023 , next in 8 months Hyperlipidemia 02996737 E78.5 On rosuvastat in 40mg daily, was not taking this daily, advised to be consistent with his medication intakeGet labs Prediabetes 688129042 R7 3.03 On metformin 500mg po bidGet labs He does see an eye doctor in [place], [place], referred to eye Premature ejaculation 44 002909 F52.4 Feels that he does have this, will refer to urology Vitamin D deficiency 347 01315 E55.9 Administra tion of influenza vaccine 53636027 Z23 [id number] Lukas rojas MD [facility] Med [facility] [place] [address] [facility], [facility] [place] [address] [place] [address] 01/10/2024 15:16:57 01/10/2024 15:50:36 Screening - NAD 748548269 Z13.9 UTD yearly flu shotUTD Tdap 06/04/18UT D on COVID 19 vaccine, follow all CDC guidelines RTC in 6 monthsDo labsER if worseHe did verbalize his understand ing of the above Leukopenia 64491464 D72. 819 WBC 12/26/2021 : Much improved Get labsHe has seen Dr Real in the past Dr Pizarro 01/01/2023 , next in 8 monthsDr Lindsey 09/03/2023 : F/u yearly Hyperlipidemia 71220707 E78.5 On rosuvastat in 40mg daily, was not taking this daily, advised to be consistent with his medication intakeGet labs Prediabetes 459089418 R7 3.03 On metformin 500mg po bidGet labs He [place] [facility] [place] [facility] [place] [place], referred to eye Premature ejaculation 44 954606 F52.4 Feels that he does have this, will refer to urology Vitamin D deficiency 347 81053 E55.9 On vit d weeklyGet labs [id number] Cain Cote MD [facility] [place] [address] [place] [address], [address] [place] [address] 03/21/2024 14:54:34 03/21/2024 15:24:56 Constipation 20256776 K59.00 Health Concerns Section Related Observation LastModified by Organization Detai ls LastModified Time None Recorded Concern Status LastModified by Organization Details LastModified Time None Recorded Advance Directives Directive N: Payers Encounter Date Sequence Insurance Name Policy Number Policy Newton Covered Member ID Newton Member ID Guarantor Name 01/02/2023 1 [facility] [id number] Tanner Waters Keyla [id number] Tanner Keyla 07/23/2023 1 [facility] [id number] Tanner Ramires [id number] Tanner Ramires 01/10/2024 1 [facility] [id number] Tanner Ramires [id number] Tanner Ramires 03/21/2024 1 [facility] [id number] Tanner Ramires [id number] Tanner Ramires Notes Date Note Type Note Provider Name and Address Organization Details Recorded Time 01/02/2023 text/html OV 06/04/18:Here to establish carePCP: [facility] Mart[facility] in [facility],Past Hx:NoneReviewed social family and surgical historyHere to establish care and get labsHe states that he did have a white d/c from the penis, 2 weeks ago, no blood, no hematuria, dysuria, no rashHe states that this usually happens when he has constipatiionHe is sexually active with women, unprotected sex, single partnerHe has seen a specialist for this 'few years ago' and was given antibiotics OV 07/02/18:Here for his one month aptHe states that he is doing wellHe did do the labsNo more penile discharge noted OV 02/24/19:Here for his routine aptHe feels really wellNo recent labs OV 06/05/19:Here for ACV:C/o L shoulder painOnset is since a couple weeks at least, no aggravating factors no remote or acute traumaHe denies any N/T or weaknessNormal gripHe does do some heavy 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 [employer] 09/30/2019:Here for his routine aptHe feels really well his ROS is negative OV 11/04/2020:Here for his routine aptHe feels wellHe did do the labs but the report is not yet available OV 05/17/2021;Here for his routine aptHe feels wellNo new labs OV 11/15/2021:Here for his routine aptHe feels wellHe did do the labs OV 12/27/2021:Here for his aptHe is here to discuss his labs done on 12/26/2021 OV 07/03/2022:Here for his f/u apt, he is doing well, he is here for his adult wellness visit also, he feels that he does have 'premature ejaculation', states that he feels a whitish d/c from his penis especially when he strains, he has done the labsROS OV 01/02/2023:Here for his f/u apt, he is doing well today, he did labs Lukas Bustamante MD [address] [facility], [place], [address], [place] [facility] [employer] 01/02/2023 10:35:43 07/23/2023 text/html OV 06/04/18:Here to establish carePCP: Dr Martínez in [facility],Past Hx:NoneReviewed social family and surgical historyHere to establish care and get labsHe states that he did have a white d/c from the penis, 2 weeks ago, no blood, no hematuria, dysuria, no rashHe states that this usually happens when he has constipatiionHe is sexually active with women, unprotected sex, single partnerHe has seen a specialist for this 'few years ago' and was given antibiotics OV 07/02/18:Here for his one month aptHe states that he is doing wellHe did do the labsNo more penile discharge noted OV 02/24/19:Here for his routine aptHe feels really wellNo recent labs OV 06/05/19:Here for ACV:C/o L shoulder painOnset is since a couple weeks at least, no aggravating factors no remote or acute traumaHe denies any N/T or weaknessNormal gripHe does do some heavy 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 [employer] 09/30/2019:Here for his routine aptHe feels really well his ROS is negative OV 11/04/2020:Here for his routine aptHe feels wellHe did do the labs but the report is not yet available OV 05/17/2021;Here for his routine aptHe feels wellNo new labs OV 11/15/2021:Here for his routine aptHe feels wellHe did do the labs OV 12/27/2021:Here for his aptHe is here to discuss his labs done on 12/26/2021 OV 07/03/2022:Here for his f/u apt, he is doing well, he is here for his adult wellness visit also, he feels that he does have 'premature ejaculation', states that he feels a whitish d/c from his penis especially when he strains, he has done the labsROS OV 01/02/2023:Here for his f/u apt, he is doing well today, he did labs OV 07/23/2023: Here for his f/u apt, he is doing very well, he did do the labs Lukas Bustamante MD [address] [facility], [address], [place], [address], [facility] 07/23/2023 14:52:00 01/10/2024 text/html OV 06/04/18:Here to establish carePCP: Dr Martínez in [facility],Past Hx:NoneReviewed social family and surgical historyHere to establish care and get labsHe states that he did have a white d/c from the penis, 2 weeks ago, no blood, no hematuria, dysuria, no rashHe states that this usually happens when he has constipatiionHe is sexually active with women, unprotected sex, single partnerHe has seen a specialist for this 'few years ago' and was given antibiotics OV 07/02/18:Here for his one month aptHe states that he is doing wellHe did do the labsNo more penile discharge noted OV 02/24/19:Here for his routine aptHe feels really wellNo recent labs OV 06/05/19:Here for ACV:C/o L shoulder painOnset is since a couple weeks at least, no aggravating factors no remote or acute traumaHe denies any N/T or weaknessNormal gripHe does do some heavy 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 [employer] 09/30/2019:Here for his routine aptHe feels really well his ROS is negative OV 11/04/2020:Here for his routine aptHe feels wellHe did do the labs but the report is not yet available OV 05/17/2021;Here for his routine aptHe feels wellNo new labs OV 11/15/2021:Here for his routine aptHe feels wellHe did do the labs OV 12/27/2021:Here for his aptHe is here to discuss his labs done on 12/26/2021 OV 07/03/2022:Here for his f/u apt, he is doing well, he is here for his adult wellness visit also, he feels that he does have 'premature ejaculation', states that he feels a whitish d/c from his penis especially when he strains, he has done the labsROS OV 01/02/2023:Here for his f/u apt, he is doing well today, he did labs OV 07/23/2023: Here for his f/u apt, he is doing very well, he did do the labs OV 01/10/2024: Here for his routine apt, he is doing well today Lukas Bustamante MD [address], [address], [place], [id number], [facility] 01/10/2024 15:54:32 03/21/2024 text/html so this patient has issues with constipation and when he pushes out a hard bowel movement he notices some fluid that drained from the urethra it has a clear fluid which is most likely semen but he was concerned about what it was He has no problems with premature ejaculation even though that was the initial diagnosis for his referral Cain Cote MD [address], [place], [id number], [facility] 03/21/2024 15:33:26
[2024-10-17 11:02] LABS: Alanine Aminotransferase 60 U/L (6-50); Albumin Level 4.6 g/dL (3.5-5.1); Alkaline Phosphatase 53 U/L (38-126); Anion Gap 8 mmol/L (4-12); Aspartate Amino Transferase 75 U/L (17-59); Bilirubin,Total 0.6 mg/dL (0.2-1.3); Blood Urea Nitrogen 23 mg/dL (9-20); Calcium 9.7 mg/dL (8.4-10.2); Carbon Dioxide 30 mmol/L (22-30); Chloride 103 mmol/L (98-107); Cholesterol 173 mg/dL (0-200); Estimated Glomerular Filt Rate > 60; Glucose 93 mg/dL (65-110); HDL Direct 50 mg/dL; Potassium 4.3 mmol/L (3.4-5.0); Sodium 141 mmol/L (137-145); Triglycerides 50 mg/dL (<150)
[2024-10-17 11:03] LABS: Hemoglobin A1C 5.7 % (<5.7)
[2024-10-17 11:08] LABS: Creatinine Urine 168.5 mg/dL
[2024-10-17 11:13] LABS: LDL Cholesterol Direct 89 mg/dL
[2024-10-17 11:15] LABS: Free T4 Free Thyroxine 0.98 ng/dL (0.78-2.19); Vitamin D 25 Hydroxy 40.6 ng/mL
[2024-10-17 11:18] LABS: Atypical Lymphocytes Present; Platelet Estimate Adequate (Adequate); Schistocytes None Seen
[2024-10-17 11:48] LABS: MALB Creatinine Ratio < 3.6 mg/g (0-30); Microalbumin Urine Random < 6.0 mg/L (0-16.7)
== END 2024-10-17 10:18 | disposition home or self-care (01) ==
LOC: ANHLAB 10:18
PROVIDERS: PCP Internal Medicine; Visit Provider Internal Medicine
DX: E78.5 Hyperlipidemia, unspecified (principal); R73.03 Prediabetes; E55.9 Vitamin D deficiency, unspecified
CPT/HCPCS: 36415; 80053; 80061; 82043; 82306; 83036; 84439; 84443; 85025

== ENCOUNTER 2024-11-27 08:44 | Outpatient (CLI) | payer OTHER, SELFPAY ==
--- NOTE | ~2024-11-27 | US_ITS ---
Limited Abdominal Sonogram: Real-time sonographic imaging of the right upper quadrant was performed. Clinical History: Abnormal liver enzymes Findings: The liver appears normal with no evidence of mass lesion or bile duct dilatation. Main por kenia vein demonstrates normal direction of flow. The gallbladder is well distended, and appears normal with no evidence of gallstone or wall thickening. The common bile duct measures 4 mm. The visualize d pancreas, aorta, and IVC are unremarkable. Impression: No significant abnormality seen. Reviewed, dictated and finalized at location M. Impression: No significant abnormality seen.
== END 2024-11-27 08:45 | disposition home or self-care (01) ==
PROVIDERS: PCP Internal Medicine; Visit Provider Internal Medicine
DX: R74.01 Elevation of levels of liver transaminase levels (principal)
CPT/HCPCS: 76705

== ENCOUNTER 2024-12-30 14:37 | Outpatient (CLI) | payer OTHER, SELFPAY ==
--- OUTSIDE RECORDS SUMMARY | 2024-12-30 14:42 | XMS_ITS | Clinical Summary ---
Author Organization [facility] Address [address] [place] [id number] Care Team Providers Care Hand Ornament Maker Name Role Phone Amy Bustamante MD Primary Care Provide r Fidel Real DO Unavailable [phone] Allergies Active Allergy Reactions Criticality Noted Date Comments Ibuprofen Hives,Swelling Medium 03/28/2012 Swelling Medications metFORMIN (GLUCOPHAGE) 500 mg tablet Take 500 mg by mouth 2 (two) times a day 01/13/2021 Active Active Problems Problem Noted Date Diagnosed Date Other neutropenia 08/10/2018 Immunizations Immunization Administration Dates Next Due [...] on file 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
--- OUTSIDE RECORDS SUMMARY | 2024-12-30 14:42 | XMS_ITS | Data Portability ---
Author Organization [employer], Main Office Address [address] [place] [address] Care Team Providers Care Avionics Installer Name Role Phone LUKAS BUSTAMANTE Primary Care Provider LUKAS BUSTAMANTE Referring Provider [phone] Assessment Encounter Date Assessment Date Assessment LastModified [...] 23.0 WBC 3.7 Glob 2.3L, TP WNL Not available 01/10/2024 15:39:28 11/17/2024 11/17/2024 06/15/2022: A1C 5.8 TSH WNL CMP: BUN 26H, glob 2.5L, TP WNL LIPIDS: LDL 100 Urine micro alb 6.4 CBC: WBC 3.5L 12/18/2022: A1C 5.9 TSH: WNL CMP: WNL CBC: WBC 3.1 Urine micro alb <6.0 01/01/2023: Dr Lindsey CBC/CMP: WNL 07/02/2023: A1C 5.7 LDL 114 WBC 3.5 12/24/2023: A1C 5.7 VIT D 23.0 WBC 3.7 Glob 2.3L, TP WNL 10/17/2024: A1C 5.7 WBC 2.9 BUN 23 AST/ALT 75/60 Not available 11/17/2024 17:58:59 Plan of Treatment Reminders Order Date Submit Date Provider Last Modified By Organization Details Last Modified Time Details Appointments Any 15 2024 08:45A Jensen hernandes MD Not available Not available Not available Lab vitamin D, 25-hydrox y, total, serum [address] (Lab), [address] [place], [address], 11/19/2024 10:36:59 glycohemo globin, total, blood [email or web address] (Lab), [address] [place], [address], 11/19/2024 10:36:59 microalbu min, urine [address] (Lab), [address] [place], [address], 11/19/2024 10:36:59 lipid panel, serum [address] (Lab), [address] [place], [address], 11/19/2024 10:36:58 CBC w/ auto diff [address] (Lab), [address] [place], [address], 11/19/2024 10:36:58 CMP, serum or plasma [address] (Lab), [address] [place], [address], 11/19/2024 10:36:58 TSH, serum or plasma [address] (Lab), [address] [place], [address], 11/19/2024 10:36:59 hepatitis panel (A+B+C), acute, serum 2024 [facility] (Lab), [address], [place], [address], 11/28/2024 07:12:12 gamma-glu tamyl transfera se (ggt), serum 2024 [facility] (Lab), [address], [place], [address], 11/28/2024 07:12:13 vitamin D, 25-hydrox y, total, serum 05/16/ 2024 05/16/[address] (Lab), [address] [place], [address], 07/08/2024 09:24:25 glycohemo globin, total, blood [address] (Lab), [address] [place], [address], 07/08/2024 09:24:25 microalbu min, urine [address] (Lab), [address] [place], [address], 07/08/2024 09:24:25 lipid panel, serum [address] (Lab), [address] [place], [address], 07/08/2024 09:24:24 CBC w/ auto diff [address] (Lab), [address] [place], [address], 07/08/2024 09:24:24 CMP, serum or plasma [address] (Lab), [address] [place], [address], 07/08/2024 09:24:24 TSH, serum or plasma [address] (Lab), [address] [place], [address], 07/08/2024 09:24:25 vitamin D, 25-hydrox y, total, serum [address] (Lab), [address] [place], [address], 02/25/2024 09:08:24 glycohemo globin, total, blood 2022 023 [facility] (Lab), [address] [place], [address], 12/24/2023 12:52:07 microalbu min, urine 2022 023 [facility] (Lab), [address] [place], [address], 12/24/2023 11:05:59 lipid panel, serum 2022 023 [facility] (Lab), [address] [place], [address], 12/24/2023 10:53:49 CBC w/ auto diff 2022 023 [facility] (Lab), [address] [place], [address], 12/24/2023 11:02:31 CMP, serum or plasma 2022 023 [facility] (Lab), [address] [place], [address], 10/02/2023 16:43:20 TSH, serum or plasma 2022 023 [facility] (Lab), [address] [place], [address], 12/24/2023 11:20:54 glycohemo globin, total, blood 2022 023 [facility] (Lab), [address] [place], [address], 07/02/2023 14:01:12 microalbu min, urine [id number] (Lab), [address] [place], [address], 08/28/2023 12:45:54 lipid panel, serum 2022 023 [facility] (Lab), [address] [place], [address], 07/02/2023 11:29:12 CBC w/ auto diff 2022 023 [facility] (Lab), [address] [place], [address], 07/02/2023 11:16:22 CMP, serum or plasma 2022 023 [facility] (Lab), [address] [place], [address], 07/02/2023 11:29:20 TSH, serum or plasma 2022 023 [facility] (Lab), [address] [place], [address], 07/02/2023 12:17:12 Referral hematolog ist referral - Please call patient to schedule an appointme nt. Thank you. 2024 025 JAMIE Lindsey MD, [address], [place], [address], 11/18/2024 10:55:21 urologist referral 2023 024 MILLY Kirkpatrick MD, [address], [address], [place], [address], 03/21/2024 16:02:25 urologist referral 2022 023 [email or web address] Jesse Beth MD, [address], [place], [address], 03/04/2024 15:23:26 Procedures None recorded. Surgeries None recorded. Imaging US, liver - Please call patient to schedule. 2024 025 MILL[facility], [address], [place] [address], [place], [address], 11/27/2024 10:09:13 Medication Orders rosuvasta tin 40 mg tablet 2022 023 MILLY [id number], [address], [place], [place], [id number], 07/23/2023 14:39:58 Patient TargetsNo targets recorded. Patient Instructions Encounter Date Encounter Id Patient Instructions Last Modified By Organization Details Last Modified Time 07/23/2023 [id number] diabetic eye exam* MILLY Not available 01/22/2024 07:25:54 03/21/2024 [id number] I explained to the patient that itches [...] Medicine, Encounter Date: 07/23/2023 Urologist Referral for Kylah ture ejaculation Referring Physician: Lukas Bustamante, Internal Medicine, Encounter Date: 01/10/2024 Please call patient to sched ule an appointment. Thank you. Referring Physician: Lukas Bustamante Internal Medicine, Encounter Date: 11/17/2024 Results Created Date Observation Date Name Description Value Unit Range Abnormal Flag Note LastModifiedBy Organization Detail LastModifiedTime 12/19/1912/18/2022 MICRO ALBUM IN RANDO M URINE microalbumin , urine <6.0 mg/L 0.0-16 .6 Not Available [facility] (Lab) [address], [place], [address], 12/18/2022 12:50:33 12/19/19 23 12/18/2022 CBC/C OMPLE TE BLD COUNT W/DIF F white blood cells 3.1 x10'3 /uL 4.2-10 .8 low Not Available [facility] (Lab) [address] [place], [address], 12/18/2022 15:39:29 12/19/19 23 12/18/2022 CBC/C OMPLE TE BLD COUNT W/DIF F red blood cells 5.31 x10'6 /uL 4.10-5 .80 Not Available [facility] (Lab) [address] [place], [address], 12/18/2022 15:39:29 12/19/19 23 12/18/2022 CBC/C OMPLE TE BLD COUNT W/DIF F hemoglobin 14.4 g/dL 13.2-1 7.0 Not Available [facility] (Lab) [address] [place], [address], 12/18/2022 15:39:29 12/19/19 23 12/18/2022 CBC/C OMPLE TE BLD COUNT W/DIF F hematocrit 45.9 % 39.3-5 0.0 Not Available [facility] (Lab) [address] [place], [address], 12/18/2022 15:39:29 12/19/1912/18/2022 CBC/C OMPLE TE BLD COUNT W/DIF F mean red cell volume 86.4 fL 80.0-9 7.0 Not Available [facility] (Lab) [address] [place], [address], 12/18/2022 15:39:29 12/19/19 23 12/18/2022 CBC/C OMPLE TE BLD COUNT W/DIF F mean red cell hemoglobin 27.1 pg 27.0-3 3.0 Not Available [facility] (Lab) [address] [place], [address], 12/18/2022 15:39:29 12/19/19 23 12/18/2022 CBC/C OMPLE TE BLD COUNT W/DIF F mean RBC HGB concentratio n 31.4 g/dL 31.0-3 6.0 Not Available [facility] (Lab) [address] [place], [address], 12/18/2022 15:39:29 12/19/19 23 12/18/2022 CBC/C OMPLE TE BLD COUNT W/DIF F red cell distribution width 13.4 % 11.8-1 5.5 Not Available [facility] (Lab) [address] [place], [address], 12/18/2022 15:39:29 12/19/19 23 12/18/2022 CBC/C OMPLE TE BLD COUNT W/DIF F platelets 261 x10'3 /uL 150-40 0 Not Available [facility] (Lab) [address] [place], [address], 12/18/2022 15:39:29 12/19/19 23 12/18/2022 CBC/C OMPLE TE BLD COUNT W/DIF F mean platelet volume 10.4 fL 9.0-12 .4 Not Available [facility] (Lab) [address] [place], [address], 12/18/2022 15:39:29 12/19/1912/18/2022 CBC/C OMPLE TE BLD COUNT W/DIF F neutrophils 25 % 39.0-7 2.0 low Not Available [facility] (Lab) [address] [place], [address], 12/18/2022 15:39:29 12/19/19 23 12/18/2022 CBC/C OMPLE TE BLD COUNT W/DIF F lymphocytes 51 % 16.0-4 7.0 high Not Available [facility] (Lab) [address] [place], [address], 12/18/2022 15:39:29 12/19/1912/18/2022 CBC/C OMPLE TE BLD COUNT W/DIF F monocytes 11 % 5.0-12 .0 Not Available [facility] (Lab) [address] [place], [address], 12/18/2022 15:39:29 12/19/19 23 12/18/2022 CBC/C OMPLE TE BLD COUNT W/DIF F eosinophils 13 % 1.0-7. 0 high Not Available [facility] (Lab) [address] [place], [address], 12/18/2022 15:39:29 12/19/19 23 12/18/2022 CBC/C OMPLE TE BLD COUNT W/DIF F neutrophils, absolute count 0.78 x10'3 /uL 1.5-8. 0 low Not Available [facility] (Lab) [address] [place], [address], 12/18/2022 15:39:29 12/19/19 23 12/18/2022 CBC/C OMPLE TE BLD COUNT W/DIF F lymphocytes, absolute count 1.58 x10'3 /uL 1.07-3 .43 Not Available [facility] (Lab) [address] [place], [address], 12/18/2022 15:39:29 12/19/19 23 12/18/2022 CBC/C OMPLE TE BLD COUNT W/DIF F monocytes, absolute count 0.34 x10'3 /uL 0.29-0 .99 Not Available [facility] (Lab) [address] [place], [address], 12/18/2022 15:39:29 12/19/19 23 12/18/2022 CBC/C OMPLE TE BLD COUNT W/DIF F eosinophils, absolute count 0.40 x10'3 /uL 0.02-0 .53 Not Available [facility] (Lab) [address] [place], [address], 12/18/2022 15:39:29 12/19/19 23 12/18/2022 CBC/C OMPLE TE BLD COUNT W/DIF F basophils, absolute count 0.00 x10'3 /uL 0.01-0 .08 low Not Available [facility] (Lab) [address] [place], [address], 12/18/2022 15:39:29 12/19/19 23 12/18/2022 CBC/C OMPLE TE BLD COUNT W/DIF F immature granulocytes ,absolute 0.00 x10'3 /uL 0.00-0 .05 Not Available [facility] (Lab) [address] [place], [address], 12/18/2022 15:39:29 12/19/19 23 12/18/2022 CBC/C OMPLE TE BLD COUNT W/DIF F nucleated red blood cells 0.0 % -0 Not Available [facility] (Lab) [address] [place], [address], 12/18/2022 15:39:29 12/19/19 23 12/18/2022 CBC/C OMPLE TE BLD COUNT W/DIF F NRBC# 0.00 x10'3 /uL Not Available [facility] (Lab) [address] [place], [address], 12/18/2022 15:39:29 12/19/19 23 12/18/2022 CBC/C OMPLE TE BLD COUNT W/DIF F reactive lymphocytes 1+ Not Available [facility] (Lab) [address] [place], [address], 12/18/2022 15:39:29 12/19/19 23 12/18/2022 COMPR EHENS HAYLEE METAB OLIC PANEL sodium 139 mmol/ L 137-14 5 Not Available [facility] (Lab) [address] [place], [address], 12/18/2022 16:00:20 12/19/19 23 12/18/2022 COMPR EHENS HAYLEE METAB OLIC PANEL potassium 4.3 mmol/ L 3.5-5. 1 Not Available [facility] (Lab) [address] [place], [address], 12/18/2022 16:00:20 12/19/19 23 12/18/2022 COMPR EHENS HAYLEE METAB OLIC PANEL chloride 104 mmol/ L 98-107 Not Available [facility] (Lab) [address] [place], [address], 12/18/2022 16:00:20 12/19/19 23 12/18/2022 COMPR EHENS HAYLEE METAB OLIC PANEL carbon dioxide 31 mmol/ L 22-30 high Not Available [facility] (Lab) [address] [place], [address], 12/18/2022 16:00:20 12/19/19 23 12/18/2022 COMPR EHENS HAYLEE METAB OLIC PANEL anion gap 8.3 mmol/ L 14-22 low Not Available [facility] (Lab) [address] [place], [address], 12/18/2022 16:00:20 12/19/19 23 12/18/2022 COMPR EHENS HAYLEE METAB OLIC PANEL glucose 91 mg/dL 70-99 Not Available [facility] (Lab) [address] [place], [address], 12/18/2022 16:00:20 12/19/19 23 12/18/2022 COMPR EHENS HAYLEE METAB OLIC PANEL BUN 13 mg/dL 8-19 Not Available [facility] (Lab) [address] [place], [address], 12/18/2022 16:00:20 12/19/19 23 12/18/2022 COMPR EHENS HAYLEE METAB OLIC PANEL creatinine 1.03 mg/dL 0.66-1 .25 Not Available [facility] (Lab) [address] [place], [address], 12/18/2022 16:00:20 12/19/19 23 12/18/2022 COMPR EHENS HAYLEE METAB OLIC PANEL GFR >60 Refer ence Range : [place] GFR Healt hy Adult : >60 [...] or ethni c subgr oups, such as Hisok nics. Outsi de the valid ated elmo [...] calcu lator is avail able on the [facility] websi te: https ://new w.kid mandy.o rg/pr ofess ional s/kdo qi/gf r_cal culat or Not Available [facility] (Lab) [address] [place], [address], 12/18/2022 16:00:20 12/19/19 23 12/18/2022 COMPR EHENS HAYLEE METAB OLIC PANEL alkaline phosphatase 59 U/L 38-126 Not Available [facility] (Lab) [address] [place], [address], 12/18/2022 16:00:20 12/19/19 23 12/18/2022 COMPR EHENS HAYLEE METAB OLIC PANEL alanine aminotransfe rase 30 U/L 0-50 Not Available [facility] (Lab) [address] [place], [address], 12/18/2022 16:00:20 12/19/19 23 12/18/2022 COMPR EHENS HAYLEE METAB OLIC PANEL aspartate aminotransfe rase 24 U/L 15-46 Not Available [facility] (Lab) [address] [place], [address], 12/18/2022 16:00:20 12/19/19 23 12/18/2022 COMPR EHENS HAYLEE METAB OLIC PANEL bilirubin, total 0.60 mg/dL 0.20-1 .30 Not Available [facility] (Lab) [address] [place], [address], 12/18/2022 16:00:20 12/19/19 23 12/18/2022 COMPR EHENS HAYLEE METAB OLIC PANEL calcium 9.6 mg/dL 8.4-10 .2 Not Available [facility] (Lab) [address] [place], [address], 12/18/2022 16:00:20 12/19/19 23 12/18/2022 COMPR EHENS HAYLEE METAB OLIC PANEL total protein 7.4 g/dL 6.3-8. 2 Not Available [facility] (Lab) [address] [place], [address], 12/18/2022 16:00:20 12/19/19 23 12/18/2022 COMPR EHENS HAYLEE METAB OLIC PANEL albumin 4.5 g/dL 3.4-5. 0 Not Available [facility] (Lab) [address] [place], [address], 12/18/2022 16:00:20 12/19/19 23 12/18/2022 COMPR EHENS HAYLEE METAB OLIC PANEL globulin 2.9 g/dL 2.6-4. 2 Not Available [facility] (Lab) [address] [place], [address], 12/18/2022 16:00:20 12/19/19 23 12/18/2022 COMPR EHENS HAYLEE METAB OLIC PANEL A/G ratio 1.6 ratio 1.0-2. 0 Not Available [facility] (Lab) [address] [place], [address], 12/18/2022 16:00:20 12/19/19 23 12/18/2022 TSH W/REF TERRANCE FT4 TSH with reflex free T4 1.650 uIU/m L 0.465- 4.680 Not Available [facility] (Lab) [address] [place], [address], 12/18/2022 16:35:53 12/19/19 23 12/19/2022 HEMOG LOBIN A1C HA1C 5.9 % 4.0-6. 0 Diabe albert Scree jorge Crite apollo: <5.7% Consi stent with absen ce of diabe albert 5.7-6 .4% Consi stent with incre ased risk for diabe albert (pred iabet es) >OR=6 .5% Consi stent with diabe albert REFER ENCE: Diabe albert Care 2015, 39(Gillis ppl.1 ):s13 -s22 Not Available [facility] (Lab) [address] [place], [address], 12/19/2022 12:36:52 07/02/20 23 07/02/2023 CBC/C OMPLE TE BLD COUNT W/DIF F white blood cells 3.5 x10'3 /uL 4.2-10 .8 low Not Available [facility] (Lab) [address] [place], [address], 07/02/2023 11:16:22 07/02/20 23 07/02/2023 CBC/C OMPLE TE BLD COUNT W/DIF F red blood cells 5.05 x10'6 /uL 4.10-5 .80 Not Available [facility] (Lab) [address] [place], [address], 07/02/2023 11:16:22 07/02/20 23 07/02/2023 CBC/C OMPLE TE BLD COUNT W/DIF F hemoglobin 14.1 g/dL 13.2-1 7.0 Not Available [facility] (Lab) [address] [place], [address], 07/02/2023 11:16:22 07/02/20 23 07/02/2023 CBC/C OMPLE TE BLD COUNT W/DIF F hematocrit 44.5 % 39.3-5 0.0 Not Available [facility] (Lab) [address] [place], [address], 07/02/2023 11:16:22 07/02/20 23 07/02/2023 CBC/C OMPLE TE BLD COUNT W/DIF F mean red cell volume 88.1 fL 80.0-9 7.0 Not Available [facility] (Lab) [address] [place], [address], 07/02/2023 11:16:22 07/02/20 23 07/02/2023 CBC/C OMPLE TE BLD COUNT W/DIF F mean red cell hemoglobin 27.9 pg 27.0-3 3.0 Not Available [facility] (Lab) [address] [place], [address], 07/02/2023 11:16:22 07/02/20 23 07/02/2023 CBC/C OMPLE TE BLD COUNT W/DIF F mean RBC HGB concentratio n 31.7 g/dL 31.0-3 6.0 Not Available [facility] (Lab) [address] [place], [address], 07/02/2023 11:16:22 07/02/20 23 07/02/2023 CBC/C OMPLE TE BLD COUNT W/DIF F red cell distribution width 13.6 % 11.8-1 5.5 Not Available [facility] (Lab) [address] [place], [address], 07/02/2023 11:16:22 07/02/20 23 07/02/2023 CBC/C OMPLE TE BLD COUNT W/DIF F platelets 222 x10'3 /uL 150-40 0 Not Available [facility] (Lab) [address] [place], [address], 07/02/2023 11:16:22 07/02/20 23 07/02/2023 CBC/C OMPLE TE BLD COUNT W/DIF F mean platelet volume 11.4 fL 9.0-12 .4 Not Available [facility] (Lab) [address] [place], [address], 07/02/2023 11:16:22 07/02/20 23 07/02/2023 CBC/C OMPLE TE BLD COUNT W/DIF F neutrophils 37.3 % 39.0-7 2.0 low Not Available [facility] (Lab) [address] [place], [address], 07/02/2023 11:16:22 07/02/20 23 07/02/2023 CBC/C OMPLE TE BLD COUNT W/DIF F lymphocytes 41.5 % 16.0-4 7.0 Not Available [facility] (Lab) [address] [place], [address], 07/02/2023 11:16:22 07/02/20 23 07/02/2023 CBC/C OMPLE TE BLD COUNT W/DIF F monocytes 11.3 % 5.0-12 .0 Not Available [facility] (Lab) [address] [place], [address], 07/02/2023 11:16:22 07/02/20 23 07/02/2023 CBC/C OMPLE TE BLD COUNT W/DIF F eosinophils 9.3 % 1.0-7. 0 high Not Available [facility] (Lab) [address] [place], [address], 07/02/2023 11:16:22 07/02/20 23 07/02/2023 CBC/C OMPLE TE BLD COUNT W/DIF F basophils 0.6 % 0.0-2. 0 Not Available [facility] (Lab) [address] [place], [address], 07/02/2023 11:16:22 07/02/20 23 07/02/2023 CBC/C OMPLE TE BLD COUNT W/DIF F immature granulocytes 0.0 % 0.00-0 .50 Not Available [facility] (Lab) [address] [place], [address], 07/02/2023 11:16:22 07/02/20 23 07/02/2023 CBC/C OMPLE TE BLD COUNT W/DIF F neutrophils, absolute count 1.32 x10'3 /uL 1.5-8. 0 low Not Available [facility] (Lab) [address] [place], [address], 07/02/2023 11:16:22 07/02/20 23 07/02/2023 CBC/C OMPLE TE BLD COUNT W/DIF F lymphocytes, absolute count 1.47 x10'3 /uL 1.07-3 .43 Not Available [facility] (Lab) [address] [place], [address], 07/02/2023 11:16:22 07/02/20 23 07/02/2023 CBC/C OMPLE TE BLD COUNT W/DIF F monocytes, absolute count 0.40 x10'3 /uL 0.29-0 .99 Not Available [facility] (Lab) [address] [place], [address], 07/02/2023 11:16:22 07/02/20 23 07/02/2023 CBC/C OMPLE TE BLD COUNT W/DIF F eosinophils, absolute count 0.33 x10'3 /uL 0.02-0 .53 Not Available [facility] (Lab) [address] [place], [address], 07/02/2023 11:16:22 07/02/20 23 07/02/2023 CBC/C OMPLE TE BLD COUNT W/DIF F basophils, absolute count 0.02 x10'3 /uL 0.01-0 .08 Not Available [facility] (Lab) [address] [place], [address], 07/02/2023 11:16:22 07/02/20 23 07/02/2023 CBC/C OMPLE TE BLD COUNT W/DIF F immature granulocytes ,absolute 0.00 x10'3 /uL 0.00-0 .05 Not Available [facility] (Lab) [address] [place], [address], 07/02/2023 11:16:22 07/02/20 23 07/02/2023 CBC/C OMPLE TE BLD COUNT W/DIF F nucleated red blood cells 0.0 % -0 Not Available [facility] (Lab) [address] [place], [address], 07/02/2023 11:16:22 07/02/20 23 07/02/2023 CBC/C OMPLE TE BLD COUNT W/DIF F NRBC# 0.00 x10'3 /uL Not Available [facility] (Lab) [address] [place], [address], 07/02/2023 11:16:22 07/02/20 23 07/02/2023 LIPID PANEL cholesterol 173 mg/dL 140-19 9 NIH MERON NSUS RECOM MENDA TION FOR ARON STERO L: ADULT CHILD LOW RISK: <200 <170 BORDE RLINE : <200- 239 ----- HIGH RISK: >240 >200 Not Available [facility] (Lab) [address] [place], [address], 07/02/2023 11:29:12 07/02/20 23 07/02/2023 LIPID PANEL triglyceride s 40 mg/dL 0-150 NIH MERON NSUS REPOR T RECOM MENDA TION FOR TRIGL YCERI TRICE: ADULT CHILD LOW RISK: <150 ----- BODER LINE: 150-1 99 ----- HIGH RISK: >200 ----- Not Available [facility] (Lab) [address] [place], [address], 07/02/2023 11:29:12 07/02/20 23 07/02/2023 LIPID PANEL HDL cholesterol 51 mg/dL 40- Not Available [facility] (Lab) [address] [place], [address], 07/02/2023 11:29:12 07/02/20 23 07/02/2023 LIPID PANEL [...] WILL NOT BE REPOR JAHAIRA. Not Available [facility] (Lab) [address] [place], [address], 07/02/2023 11:29:12 07/02/20 23 07/02/2023 COMPR EHENS HAYLEE METAB OLIC PANEL sodium 140 mmol/ L 137-14 5 Not Available [facility] (Lab) [address] [facility], [address], 07/02/2023 11:29:20 07/02/20 23 07/02/2023 COMPR EHENS HAYLEE METAB OLIC PANEL potassium 4.0 mmol/ L 3.5-5. 1 Not Available [facility] (Lab) [address] [facility] [place], [address], 07/02/2023 11:29:20 07/02/20 23 07/02/2023 COMPR EHENS HAYLEE METAB OLIC PANEL chloride 106 mmol/ L 98-107 Not Available [facility] (Lab) [address] [place], [address], 07/02/2023 11:29:20 07/02/20 23 07/02/2023 COMPR EHENS HAYLEE METAB OLIC PANEL carbon dioxide 28 mmol/ L 22-30 Not Available [facility] (Lab) [address] [place], [address], 07/02/2023 11:29:20 07/02/20 23 07/02/2023 COMPR EHENS HAYLEE METAB OLIC PANEL anion gap 10.0 mmol/ L 14-22 low Not Available [facility] (Lab) [address] [place], [address], 07/02/2023 11:29:20 07/02/20 23 07/02/2023 COMPR EHENS HAYLEE METAB OLIC PANEL glucose 91 mg/dL 70-99 Not Available [facility] (Lab) [address] [place], [address], 07/02/2023 11:29:20 07/02/20 23 07/02/2023 COMPR EHENS HAYLEE METAB OLIC PANEL BUN 15 mg/dL 8-19 Not Available [facility] (Lab) [address] [place], [address], 07/02/2023 11:29:20 11/06/07/02/2023 COMPR EHENS HAYLEE METAB OLIC PANEL creatinine 1.07 mg/dL 0.66-1 .25 Not Available [facility] (Lab) [address] [place], [address], 07/02/2023 11:29:20 07/02/20 23 07/02/2023 COMPR EHENS HAYLEE METAB OLIC PANEL GFR >60 Refer ence Range : [place] GFR Healt hy Adult : >60 [...] or ethni c subgr oups, such as Hisok nics. Outsi de the valid ated elmo [...] calcu lator is avail able on the [facility] websi te: https ://new w.kid mandy.o rg/pr ofess ional s/kdo qi/gf r_cal culat or Not Available [facility] (Lab) [address] [place], [address], 07/02/2023 11:29:20 07/02/20 23 07/02/2023 COMPR EHENS HAYLEE METAB OLIC PANEL alkaline phosphatase 48 U/L 38-126 Not Available [facility] (Lab) [address] [place], [address], 07/02/2023 11:29:20 07/02/20 23 07/02/2023 COMPR EHENS HAYLEE METAB OLIC PANEL alanine aminotransfe rase 28 U/L 0-50 Not Available [facility] (Lab) [address] [place], [address], 07/02/2023 11:29:20 07/02/20 23 07/02/2023 COMPR EHENS HAYLEE METAB OLIC PANEL aspartate aminotransfe rase 22 U/L 15-46 Not Available [facility] (Lab) [address] [facility] [place], [address], 07/02/2023 11:29:20 07/02/20 23 07/02/2023 COMPR EHENS HAYLEE METAB OLIC PANEL bilirubin, total 0.40 mg/dL 0.20-1 .30 Not Available [facility] (Lab) [address] [place], [address], 07/02/2023 11:29:20 07/02/20 23 07/02/2023 COMPR EHENS HAYLEE METAB OLIC PANEL calcium 9.5 mg/dL 8.4-10 .2 Not Available [facility] (Lab) [address] [place], [address], 07/02/2023 11:29:20 07/02/20 23 07/02/2023 COMPR EHENS HAYLEE METAB OLIC PANEL total protein 6.9 g/dL 6.3-8. 2 Not Available [facility] (Lab) [address] [place], [address], 07/02/2023 11:29:20 07/02/20 23 07/02/2023 COMPR EHENS HALYEE METAB OLIC PANEL albumin 4.2 g/dL 3.4-5. 0 Not Available [facility] (Lab) [address] [place], [address], 07/02/2023 11:29:20 07/02/20 23 07/02/2023 COMPR EHENS HAYLEE METAB OLIC PANEL globulin 2.7 g/dL 2.6-4. 2 Not Available [facility] (Lab) [address] [place], [address], 07/02/2023 11:29:20 07/02/20 23 07/02/2023 COMPR EHENS HAYLEE METAB OLIC PANEL A/G ratio 1.6 ratio 1.0-2. 0 Not Available [facility] (Lab) [address] [place], [address], 07/02/2023 11:29:20 07/02/20 23 07/02/2023 TSH W/REF TERRANCE FT4 TSH with reflex free T4 1.720 uIU/m L 0.465- 4.680 Not Available [facility] (Lab) [address] [place], [address], 07/02/2023 12:17:11 07/02/20 23 07/02/2023 MICRO ALBUM N RNDM W/CRE AT RATIO ur creat 239.68 mg/dL REFER ENCE RANGE NOT ESTAB LISHE D FOR RANDO M URINE CREAT ININE Not Available [facility] (Lab) [address] [place], [address], 07/02/2023 14:05:47 07/02/20 23 07/02/2023 MICRO ALBUM N RNDM W/CRE AT RATIO microalbumin , urine 7.3 mg/L 0.0-16 .6 Not Available [facility] (Lab) [address] [place], [address], 07/02/2023 14:05:47 07/02/20 23 07/02/2023 MICRO ALBUM [...] ENCE: DIABE ALBERT CARE, VOL. 26: S94-S 96, RY 2002 Not Available [facility] (Lab) [address] [place], [address], 07/02/2023 14:05:47 07/02/20 23 07/02/2023 HEMOG LOBIN A1C HA1C 5.7 % 4.0-6. 0 Diabe albert Scree jorge Crite apollo: <5.7% Consi stent with absen ce of diabe albert 5.7-6 .4% Consi stent with incre ased risk for diabe albert (pred iabet es) >OR=6 .5% Consi stent with diabe albert REFER ENCE: Diabe albert Care 2016, 39(Gillis ppl.1 ):s13 -s22 Not Available [facility] (Lab) [address] [place], [address], 07/02/2023 14:01:12 12/24/19 24 12/24/2023 LIPID PANEL cholesterol 108 mg/dL 140-19 9 low NIH MERON NSUS RECOM MENDA TION FOR ARON STERO L: ADULT CHILD LOW RISK: <200 <170 BORDE RLINE : <200- 239 ----- HIGH RISK: >240 >200 Not Available [facility] (Lab) [address] [place], [address], 12/24/2023 10:53:49 12/24/19 24 12/24/2023 LIPID PANEL triglyceride s 40 mg/dL 0-150 NIH MERON NSUS REPOR T RECOM MENDA TION FOR TRIGL YCERI TRICE: ADULT CHILD LOW RISK: <150 ----- BODER LINE: 150-1 99 ----- HIGH RISK: >200 ----- Not Available [facility] (Lab) [address] [place], [address], 12/24/2023 10:53:49 12/24/19 24 12/24/2023 LIPID PANEL HDL cholesterol 56 mg/dL 40- Not Available [facility] (Lab) [address] [place], [address], 12/24/2023 10:53:49 12/24/19 24 12/24/2023 LIPID PANEL LDL cholesterol, calculated 44 mg/dL 0-130 NIH MERON NSUS REPOR T RECOM MENDA TIONS FOR LDL: ADULT CHILD LOW RISK <130 <110 (OPTI MAL LDL) <100 ----- NILS RLINE : 130-1 59 ----- HIGH RISK: >160 >130 A TRIGL YCERI DE RESUL T >400 INVAL IDATE S THE CALCU LATIO N FOR LDL FRACT IONAT ION - THE LDL RESUL T WILL NOT BE REPOR JAHAIRA. Not Available [facility] (Lab) [address] [place], [address], 12/24/2023 10:53:49 12/24/19 24 12/24/2023 COMP MET PANEL /LIVE R sodium 141 mmol/ L 137-14 5 Not Available [facility] (Lab) [address] [place], [address], 12/24/2023 10:54:00 12/24/19 24 12/24/2023 COMP MET PANEL /LIVE R potassium 4.5 mmol/ L 3.5-5. 1 Not Available [facility] (Lab) [address] [place], [address], 12/24/2023 10:54:00 12/24/19 24 12/24/2023 COMP MET PANEL /LIVE R chloride 106 mmol/ L 98-107 Not Available [facility] (Lab) [address] [place], [address], 12/24/2023 10:54:00 12/24/19 24 12/24/2023 COMP MET PANEL /LIVE R carbon dioxide 31 mmol/ L 22-30 high Not Available [facility] (Lab) [address] [place], [address], 12/24/2023 10:54:00 12/24/19 24 12/24/2023 COMP MET PANEL /LIVE R anion gap 8.5 mmol/ L 14-22 low Not Available [facility] (Lab) [address] [place], [address], 12/24/2023 10:54:00 12/24/19 24 12/24/2023 COMP MET PANEL /LIVE R glucose 93 mg/dL 70-99 Not Available [facility] (Lab) [address] [place], [address], 12/24/2023 10:54:00 12/24/19 24 12/24/2023 COMP MET PANEL /LIVE R BUN 18 mg/dL 8-19 Not Available [facility] (Lab) [address] [place], [address], 12/24/2023 10:54:00 12/24/19 24 12/24/2023 COMP MET PANEL /LIVE R creatinine 1.00 mg/dL 0.66-1 .25 Not Available [facility] (Lab) [address] [place], [address], 12/24/2023 10:54:00 12/24/19 24 12/24/2023 COMP MET PANEL /LIVE R GFR >60 Refer ence Range : [place] GFR Healt hy Adult : >60 [...] calcu lator is avail able on the [facility] websi te: [email or web address] :[email or web address] [email or web address]/pr ofess ional s/kdo qi/gf r_cal culat or Not Available [facility] (Lab) [address] [place], [address], 12/24/2023 10:54:00 12/24/19 24 12/24/2023 COMP MET PANEL /LIVE R alkaline phosphatase 59 U/L 38-126 Not Available [facility] (Lab) [address] [place], [address], 12/24/2023 10:54:00 12/24/19 24 12/24/2023 COMP MET PANEL /LIVE R alanine aminotransfe rase 36 U/L 0-50 Not Available [facility] (Lab) [address] [place], [address], 12/24/2023 10:54:00 12/24/19 24 12/24/2023 COMP MET PANEL /LIVE R aspartate aminotransfe rase 26 U/L 15-46 Not Available [facility] (Lab) [address] [place], [address], 12/24/2023 10:54:00 12/24/19 24 12/24/2023 COMP MET PANEL /LIVE R bilirubin, total 0.40 mg/dL 0.20-1 .30 Not Available [facility] (Lab) [address] [place], [address], 12/24/2023 10:54:00 12/24/19 24 12/24/2023 COMP MET PANEL /LIVE R bilirubin, conjugated (direct) 0.00 mg/dL 0.00-0 .30 Not Available [facility] (Lab) [address] [place], [address], 12/24/2023 10:54:00 12/24/19 24 12/24/2023 COMP MET PANEL /LIVE R biliurubin,u ncong. (indirect) 0.20 mg/dL 0.00-1 .1 Not Available [facility] (Lab) [address] [place], [address], 12/24/2023 10:54:00 12/24/19 24 12/24/2023 COMP MET PANEL /LIVE R calcium 9.5 mg/dL 8.4-10 .2 Not Available [facility] (Lab) [address] [place], [address], 12/24/2023 10:54:00 12/24/19 24 12/24/2023 COMP MET PANEL /LIVE R total protein 6.8 g/dL 6.3-8. 2 Not Available [facility] (Lab) [address] [place], [address], 12/24/2023 10:54:00 12/24/19 24 12/24/2023 COMP MET PANEL /LIVE R albumin 4.5 g/dL 3.4-5. 0 Not Available [facility] (Lab) [address] [place], [address], 12/24/2023 10:54:00 12/24/19 24 12/24/2023 COMP MET PANEL /LIVE R globulin 2.3 g/dL 2.6-4. 2 low Not Available [facility] (Lab) [address] [facility], [address], 12/24/2023 10:54:00 12/24/19 24 12/24/2023 COMP MET PANEL /LIVE R A/G ratio 2.0 ratio 1.0-2. 0 Not Available [facility] (Lab) [address] [place], [address], 12/24/2023 10:54:00 12/24/19 24 12/24/2023 CBC/C OMPLE TE BLD COUNT W/DIF F white blood cells 3.7 x10'3 /uL 4.2-10 .8 low Not Available [facility] (Lab) [address] [place], [address], 12/24/2023 11:02:31 12/24/19 24 12/24/2023 CBC/C OMPLE TE BLD COUNT W/DIF F red blood cells 5.10 x10'6 /uL 4.10-5 .80 Not Available [facility] (Lab) [address] [place], [address], 12/24/2023 11:02:31 12/24/19 24 12/24/2023 CBC/C OMPLE TE BLD COUNT W/DIF F hemoglobin 14.1 g/dL 13.2-1 7.0 Not Available [facility] (Lab) [address] [place], [address], 12/24/2023 11:02:31 12/24/19 24 12/24/2023 CBC/C OMPLE TE BLD COUNT W/DIF F hematocrit 44.2 % 39.3-5 0.0 Not Available [facility] (Lab) [address] [place], [address], 12/24/2023 11:02:31 12/24/19 24 12/24/2023 CBC/C OMPLE TE BLD COUNT W/DIF F mean red cell volume 86.7 fL 80.0-9 7.0 Not Available [facility] (Lab) [address] [place], [address], 12/24/2023 11:02:31 12/24/19 24 12/24/2023 CBC/C OMPLE TE BLD COUNT W/DIF F mean red cell hemoglobin 27.6 pg 27.0-3 3.0 Not Available [facility] (Lab) [address] [place], [address], 12/24/2023 11:02:31 12/24/19 24 12/24/2023 CBC/C OMPLE TE BLD COUNT W/DIF F mean RBC HGB concentratio n 31.9 g/dL 31.0-3 6.0 Not Available [facility] (Lab) [address] [place], [address], 12/24/2023 11:02:31 12/24/19 24 12/24/2023 CBC/C OMPLE TE BLD COUNT W/DIF F red cell distribution width 13.8 % 11.8-1 5.5 Not Available [facility] (Lab) [address] [place], [address], 12/24/2023 11:02:31 12/24/19 24 12/24/2023 CBC/C OMPLE TE BLD COUNT W/DIF F platelets 238 x10'3 /uL 150-40 0 Not Available [facility] (Lab) [address] [place], [address], 12/24/2023 11:02:31 12/24/19 24 12/24/2023 CBC/C OMPLE TE BLD COUNT W/DIF F mean platelet volume 10.8 fL 9.0-12 .4 Not Available [facility] (Lab) [address] [place], [address], 12/24/2023 11:02:31 12/24/19 24 12/24/2023 CBC/C OMPLE TE BLD COUNT W/DIF F neutrophils 38.9 % 39.0-7 2.0 low Not Available [facility] (Lab) [address] [place], [address], 12/24/2023 11:02:31 12/24/19 24 12/24/2023 CBC/C OMPLE TE BLD COUNT W/DIF F lymphocytes 43.6 % 16.0-4 7.0 Not Available [facility] (Lab) [address] [place], [address], 12/24/2023 11:02:31 12/24/19 24 12/24/2023 CBC/C OMPLE TE BLD COUNT W/DIF F monocytes 10.1 % 5.0-12 .0 Not Available [facility] (Lab) [address] [place], [address], 12/24/2023 11:02:12/24/19 24 12/24/2023 CBC/C OMPLE TE BLD COUNT W/DIF F eosinophils 6.8 % 1.0-7. 0 Not Available [facility] (Lab) [address] [place], [address], 12/24/2023 11:02:31 12/24/19 24 12/24/2023 CBC/C OMPLE TE BLD COUNT W/DIF F basophils 0.3 % 0.0-2. 0 Not Available [facility] (Lab) [address] [place], [address], 12/24/2023 11:02:31 12/24/19 24 12/24/2023 CBC/C OMPLE TE BLD COUNT W/DIF F immature granulocytes 0.3 % 0.00-0 .50 Not Available [facility] (Lab) [address] [place], [address], 12/24/2023 11:02:31 12/24/19 24 12/24/2023 CBC/C OMPLE TE BLD COUNT W/DIF F neutrophils, absolute count 1.43 x10'3 /uL 1.5-8. 0 low Not Available [facility] (Lab) [address] [place], [address], 12/24/2023 11:02:31 12/24/19 24 12/24/2023 CBC/C OMPLE TE BLD COUNT W/DIF F lymphocytes, absolute count 1.60 x10'3 /uL 1.07-3 .43 Not Available [facility] (Lab) [address] [place], [address], 12/24/2023 11:02:31 12/24/19 24 12/24/2023 CBC/C OMPLE TE BLD COUNT W/DIF F monocytes, absolute count 0.37 x10'3 /uL 0.29-0 .99 Not Available [facility] (Lab) [address] [place], [address], 12/24/2023 11:02:31 12/24/19 24 12/24/2023 CBC/C OMPLE TE BLD COUNT W/DIF F eosinophils, absolute count 0.25 x10'3 /uL 0.02-0 .53 Not Available [facility] (Lab) [address] [place], [address], 12/24/2023 11:02:31 12/24/19 24 12/24/2023 CBC/C OMPLE TE BLD COUNT W/DIF F basophils, absolute count 0.01 x10'3 /uL 0.01-0 .08 Not Available [facility] (Lab) [address] [place], [address], 12/24/2023 11:02:31 12/24/19 24 12/24/2023 CBC/C OMPLE TE BLD COUNT W/DIF F immature granulocytes ,absolute 0.01 x10'3 /uL 0.00-0 .05 Not Available [facility] (Lab) [address] [place], [address], 12/24/2023 11:02:31 12/24/19 24 12/24/2023 CBC/C OMPLE TE BLD COUNT W/DIF F nucleated red blood cells 0.0 % -0 Not Available [facility] (Lab) [address] [place], [address], 12/24/2023 11:02:31 12/24/19 24 12/24/2023 CBC/C OMPLE TE BLD COUNT W/DIF F NRBC# 0.00 x10'3 /uL Not Available [facility] (Lab) [address] [place], [address], 12/24/2023 11:02:31 12/24/19 24 12/24/2023 MICRO ALBUM IN RANDO M URINE microalbumin , urine <6.0 mg/L 0.0-16 .6 Not Available [facility] (Lab) [address] [place], [address], 12/24/2023 11:05:59 12/24/19 24 12/24/2023 VITAM IN D 25-HY DROXY [id number] 23.0 NG/mL 30-100 low Vitam in D Statu s: Defic ient: <20 ng/mL Insuf ficie nt: 20-29 ng/mL Suffi cient : 30-10 0 ng/mL Not Available [facility] (Lab) [address] [place], [address], 12/24/2023 11:06:39 12/24/19 24 12/24/2023 TSH W/REF TERRANCE FT4 TSH with reflex free T4 1.330 uIU/m L 0.465- 4.680 Not Available [facility] (Lab) [address] [place], [address], 12/24/2023 11:20:54 12/24/19 24 12/24/2023 HEMOG LOBIN A1C HA1C 5.7 % 4.0-6. 0 Diabe albert Scree jorge Crite apollo: <5.7% Consi stent with absen ce of diabe albert 5.7-6 .4% Consi stent with incre ased risk for diabe albert (pred iabet es) >OR=6 .5% Consi stent with diabe albert REFER ENCE: Diabe albert Care 2016, 39(Gillis ppl.1 ):s13 -s22 Not Available [facility] ([facility]) [address], [place], [address], 12/24/2023 12:52:07 11/28/19 25 11/27/2024 US, liver No observ ation record ed. [facility] [address], [place], [address], 11/27/2024 10:09:13 Result Notes None recorded. Problems Name Problem SNOMED Code Status Onset Date Resolution Date Notes Provider Name and Address Organization Details Recorded Time Leukocytosis 435011735 Active 2021 Not Available [facility] 3 02:57:13 Prediabetes 749270759 Active 2021 Not Available [facility] 3 02:57:13 Leukopenia 56308759 Active 2022 Lukas rojas MD [address], [facility] [address], [place], [address] , [employer] 3 14:32:15 Hyperlipidemi a 70166891 Active 2022 Lukas rojas MD [address], [facility] [address], [place], [address] , [employer] 3 14:32:24 Premature ejaculation 17102025 Active 2022 Lukas rojas MD [address], [facility] [address], [place], [address] , [employer] 3 14:32:46 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 Kaylynn prakash, [employer] [facility] [employer] 3 12:00:20 Vitamin D deficiency 77047071 Active 2022 Lukas rojas MD [address], [facility] [address], [place], [address] , [facility] [employer] [facility] [employer] 3 14:04:45 Constipation 77671279 Active 2023 Cain Cote MD [address] [facility] [address], [place], [address] , [facility] [employer] 4 15:32:11 Liver enzymes level above reference range 156830561 Active 2024 Lukas rojas MD [address], [address] [address], [place], [address] , [employer] [facility] [employer] 5 12:43:13 Problem Notes None recorded. Procedures Surgical History None recorded. Imaging Results Imaging Date Name Status LastModified by Organizatio n Details LastModified Time 11/27/2024 US, liver active [facility] [address] [facility] [address], [place], [address], 11/27/2024 10:09:13 Procedure Notes None recorded. Medical Equipment None Reported. Allergies Allergen ID Allergen Name Allergen Category Reaction Reaction Severity Criticality Documentation Date Start Date Code Code System Note Provider Name and Address Organization Details Recorded Time 5579 ibuprofen medicatio n Not available Not available Not available 10/25/2022 5640 RxNorm Break s out in hives BHUPINDER Mark, [facility] [employer] 5 17:29:07 Medications Name Sig Start Date Stop Date Status Note LastModified by Organization Details LastModified Time metformin 500 mg tablet TAKE 1 TABLET BY MOUTH TWICE DAILY active Not Available Not Available No t Available sulfamethoxa zole 400 mg-trimethop rim 80 mg [...] 1 CAPSULE BY MOUTH ONCE A WEEK 11/17 completed Not Available Not Available Not Available Zipsor 25 mg capsule Take 1 capsule twice a day by oral route as needed for 30 days. 09/30 completed Not Available Not Available Not Available Vitals Date Recorded Body height Body mass index (BMI) Body weight Body temperature Heart rate Systolic blood pressure Diastolic blood pressure Provider Name and Address Organization Details Last Updated DateTime 3 174.63 cm 24.8 kg/m2 44606.9 3 g 97.6 [degF] 72 /min 124 mm[Hg] 70 mm[Hg] PHILIP Colon [facility] [employer] [facility] 3 10:08:43 Date Recorded Body height Body mass index (BMI) Body weight Body temperature Heart rate Oxygen saturation Oxygen saturation in Arterial blood by Pulse oximetry Systolic blood pressure Diastolic blood pressure Provider Name and Address Organization Details Last Updated DateTime 3 174.63 cm 26.2 kg/m2 95366.2 6 g 97.7 [degF] 75 /min 97 % 97 % 124 mm[Hg] 74 mm[Hg] Joselin Conde MA [facility] [employer] [facility] 3 14:11:42 Date Recorded Body height Body mass index (BMI) Body weight Body temperature Heart rate Oxygen saturation Oxygen saturation in Arterial blood by Pulse oximetry Systolic blood pressure Diastolic blood pressure Provider Name and Address Organization Details Last Updated DateTime 4 174.63 cm 24.5 kg/m2 70314.7 4 g 98.7 [degF] 82 /min 99 % 99 % 120 mm[Hg] 66 mm[Hg] Clarice Melvin MA [facility] [employer] [facility] 4 15:27:25 Date Recorded Body height Heart rate Body temperature Body mass index (BMI) Body weight Oxygen saturation Oxygen saturation in Arterial blood by Pulse oximetry Systolic blood pressure Diastolic blood pressure Provider Name and Address Organization Details Last Updated DateTime 4 174.63 cm 76 /min 97.1 [degF] 24.2 kg/m2 60511.5 6 g 99 % 99 % 111 mm[Hg] 65 mm[Hg] Litzy Noonan CMA [employer] 4 15:00:01 Date Recorded Body height Body mass index (BMI) Body weight Body temperature Heart rate Oxygen saturation Oxygen saturation in Arterial blood by Pulse oximetry Pain severity - 0-10 verbal numeric rating [Score] - Reported Systolic blood pressure Diastolic blood pressure Provider Name and Address Organization Details Last Updated DateTime 5 174.63 cm 24.9 kg/m2 39964.7 2 g 98.6 [degF] 84 /min 98 % 98 % 0 110 mm[Hg] 68 mm[Hg] Clarice Melvin MA [employer] 5 17:28:39 Social History Question Answer Notes LastModified by Organizat ion Details LastModified Time Tobacco Smoking Status Never Smoker Not Available [facility] 10/25/2022 02:45:32 Do You Have An Advance Directive? No [id number] Information not available 10/25/2022 What Is Your Level Of Alcohol Consumption? None [id number].[id number] 7194 Information not available 10/25/2022 What Is Your Level Of Caffeine Consumption? Occasional MIGRATION.[id number] 1673 Information not available 10/25/2022 How Much Tobacco Do You Chew? None MIGRATION.[id number] 8690 Information not available 10/25/2022 In The 14 Days Before Symptom Onset, Have You Had Close Contact With A Laboratory-confir med COVID-19 While That Case Was Ill? No MIGRATION.[id number] 7612 Information not available 10/25/2022 In The 14 Days Before Symptom Onset, Have You Had Close Contact With A Person Who Is Under Investigation For COVID-19 While That Person Was Ill? No MIGRATION.[id number] 3625 Information not available 10/25/2022 Are You Currently Employed? Yes Information not available 01/02/2023 What Type Of Diet Are You Following? REGULAR [id number].[id number] 4445 Information not available 10/25/2022 Which Illicit Or Recreational Drugs Have You Used? None MIGRATION.816160 4540 Information not available 10/25/2022 Do You Or Have You Ever Used E-cigarettes Or Vape? Never Used Electronic Cigarettes MIGRATION.[id number] 0801 Information not available 10/25/2022 What Is The Highest Grade Or Level Of School You Have Completed Or The Highest Degree You Have Received? 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 No MIGRATION.657476 8954 Information not available 10/25/2022 What Is The Fluoride Status Of Your Home? Unknown MIGRATION.146081 2563 Information not available 10/25/2022 Are There Any Guns Present In Your Home? Yes MIGRATION.254930 6622 Information not available 10/25/2022 Do You Use Insect Repellent Routinely? Yes MIGRATION.586902 9805 Information not available 10/25/2022 Where Do You Live? Apartment MIGRATION.497410 4517 Information not available 10/25/2022 Do You Have A Medical Power Of Neck Band Operator? No MIGRATION.138131 8699 Information not available 10/25/2022 What Was The Date Of Your Most Recent Tobacco Screening? 11/17/2024 [email or web address] Information not available 11/17/2024 Do You Have Any Pets? No MIGRATION.659333 5148 Information not available 10/25/2022 What Is Your Relationship Status? MIGRATION.816685 4385 Information not available 10/25/2022 Do You Use Your Seat Belt Or Car Seat Routinely? Yes Information not available 01/02/2023 Do You Have Smoke And Carbon Monoxide Detectors In Your Home? Yes MIGRATION.234767 7014 Information not available 10/25/2022 Are You Passively Exposed To Smoke? No MIGRATION.463606 9524 Information not available 10/25/2022 Do You Or Have You Ever Used Smokeless Tobacco? Never Used Smokeless Tobacco MIGRATION.058475 5503 Information not available 10/25/2022 Are There Any Smokers In Your House? No MIGRATION.440303 3069 Information not available 10/25/2022 How Much Tobacco Do You Smoke? No MIGRATION.231629 4276 Information not available 10/25/2022 Do You Feel Stressed (tense, Restless, Nervous, Or Anxious, Or Unable To Sleep At Night)? [id number] MIGRATION.619877 0712 Information not available 10/25/2022 Do You Use Any Illicit Or Recreational Drugs? No MIGRATION.458902 6155 Information not available 10/25/2022 Do You Use Sunscreen Routinely? No MIGRATION.961459 3486 Information not available 10/25/2022 Has Tobacco Cessation Counseling Been Provided? No N/a MIGRATION.451951 7621 Information not available 10/25/2022 Have You Recently Traveled Abroad? No MIGRATION.306868 6273 Information not available 10/25/2022 Do You Have Any Dietary Restrictions? No MIGRATION.152476 5293 Information not available 10/25/2022 Do You Or Have You Ever Used Any Other Forms Of Tobacco Or Nicotine? No MIGRATION.464514 7438 Information not available 10/25/2022 Sex: Male Functional Status Question Answer Note LastModified by Organizat ion Details LastModified Time What is your exercise level? Moderate [id number].[id number] 6 Information not available 10/25/2022 Mental Status None recorded. Family History Relationship Description Onset Age of this Age Resolved Age Notes LastModified by Organization Details LastModified Time Mother Heart disease [id number] Not available 10/25/2022 02:46:59 Mother Malignant tumor of breast MIGRATION.898 [id number] Not available 10/25/2022 02:46:59 Father Diabetes mellitus MIGRATION.395 [id number] Not available 10/25/2022 02:46:59 Father Pulmonary emphysema MIGRATION.573 [id number] Not available 10/25/2022 02:46:59 Medical History Condition Response NERVE DISEASE N BLINDNESS N RHEUMATIC FEVER N KIDNEY STONES N BLADDER PROBLEMS N MRSA N OTHER # 1 N POLIO N LUNG DISEASE/DISORDER N HISTORY OF DRUG ABUSE N RADIATION / CHEMOTHERAPY N COPD N Other # 2 N BLOOD DISEASES N EAR OR HEARING PROBLEMS N MUMPS N SHINGLES N DEPRESSION (INCLUDING POST ) N BOWEL PROBLEMS N STROKE/TIA N ULCERS N BENIGN PROSTATIC HYPERPLASIA N MEASLES N HYPOTENSION N MYOCARDIAL INFARCTION N OBESITY N GERD/NAUSEA N ANEURYSM N URINARY/BLADDER/KIDNEY PROBLEMS N CORONARY ARTERY DISEASE (CAD) N ADDICTION CONCERNS N Impotence N ENDOMETRIOSIS N USE OF BLOOD THINNERS N SKIN [...] GLAUCOMA N FOOT PROBLEM N DIVERTICULITIS N SLEEP APNEA N CHICKENPOX N INFECTIOUS DISEASE N PROSTATE N HEART ARRHYTHMIA N INSOMNIA N HIGH CHOLESTEROL / HYPERLIPIDEMIA Y HYPERTHYROIDISM N EYE PROBLEMS N EDEMA N CHRONIC PAIN SYNDROME N HYPOTHYROIDISM N CONSTIPATION N CAROTID BLOCKAGE N BACK / NECK PROBLEMS N ATHEROSCLEROSIS N BREAST PROBLEMS N DIALYSIS N ECZEMA N OSTEOPOROSIS N ARTHRITIS N APPENDICITIS N DIABETES, TYPE N BAD TEETH N ENT N HEARTBURN / REFLUX N AUTISM SPECTRUM DISORDER (ASD) N HEPATITIS / LIVER DISEASE N GOUT N SLEEP DISORDER N ALZHEIMER'S DISEASE N Brain Problems N HERPES N DEMENTIA N SEIZURES/EPILEPSY N HEADACHES/MIGRAINES N VASCULAR DISEASE N PACEMAKER N Blood Disorder Y DIZZINESS N KIDNEY DISEASE N HEART DISEASE/HEART PROBLEMS N MULTIPLE SCLEROSIS N CARDIAC ARRHYTHMIA N CANCER: SPECIFY N Gall Stones N ATRIAL FIBRILLATION N PULMONARY EMBOLISM N AUTOIMMUNE DISEASE N Immunizations Vaccine Type Date Status Note Provider Nam e and Address Organization Details Recorded Time COVID-19, mRNA, LNP-S, PF, 30 mcg/0.3 mL dose 05/15/2021 completed Not Available [facility] 3 03:14:03 COVID-19, mRNA, LNP-S, PF, 30 mcg/0.3 mL dose 04/24/2021 completed Not Available [facility] 3 03:14:03 Influenza, split virus, quadrivalent, PF 07/04/2022 completed Not Available [facility] 3 03:14:03 Influenza, split virus, quadrivalent, PF 06/05/2019 completed Not Available [facility] 3 03:14:03 Tdap 06/04/2018 completed Not Available [facility] 10/25/2022 03:14:03 Influenza, split virus, quadrivalent, PF 06/04/2018 completed Not Available [facility] 3 03:14:03 Influenza, split virus, quadrivalent, PF 07/23/2023 completed BHUPINDER [facility] [place] [employer] [facility] 07/23/2023 14:46:57 Past Encounters Encounter ID Performer Location Encounter Start Date Encounter Closed Date Diagnosis/Indication Diagnosis SNOMED-CT Code Diagnosis ICD10 Code Diagnosis Note [id number] Lukas rojas MD [facility] [address] [place] [address] Ave[address] [address] 11/04/2020 00:00:00 11/04/2020 13:52:25 [id number] Lukas rojas MD [facility] [address] [place] [address] Ave[address] [address] 05/17/2021 00:00:00 05/17/2021 18:29:11 [id number] Lukas rojas MD [facility] [address] [place] [address] Ave[address] [address] 11/15/2021 00:00:00 11/15/2021 18:21:28 [id number] Lukas rojas MD [facility] [address] [address] 12/27/2021 00:00:00 12/27/2021 17:49:49 [id number] Lukas rojas MD [facility] [address] [address] 07/04/2022 00:00:00 07/04/2022 10:44:40 [id number] Lukas rojas MD [facility] [address] [place] [address] Ave[address] [address] 01/02/2023 09:57:18 01/02/2023 10:29:06 Screening - NAD 220628901 Z13.9 UTD yearly flu shotUTD Tdap 06/04/18UT D on COVID 19 vaccine, follow all CDC guidelines RTC in 6 monthsDo labsER if worseHe did verbalize his understand ing of the above Leukopenia 87336517 D72. 819 WBC 12/26/2021 : Much improved Get labsHe has seen Dr Real in the past Dr Pizarro Hyperlipidemia 76031029 E78.5 On rosuvastat in 40mg dailyGet labs Prediabetes 117675274 R7 3.03 On metformin 500mg po bidGet labs He does see an eye doctor in [place] Premature ejaculation 44 523192 F52.4 Feels that he does have this, will refer to urology [id number] Lukas rojas MD [facility] Internal Med Pramod [facility]hen [address] [place] [address] 07/23/2023 14:01:29 2023 10:16:47 Screening - NAD 373910607 Z13.9 UTD yearly flu shotUTD Tdap 06/04/18UT D on COVID 19 vaccine, follow all CDC guidelines RTC in 6 monthsDo labsER if worseHe did verbalize his understand ing of the above Leukopenia 43905341 D72. 819 WBC 12/26/2021 : Much improved Get labsKedar has seen Dr Real in the past Dr Pizarro 01/01/2023 , next in 8 months Hyperlipidemia 12186300 E78.5 On rosuvastat in 40mg daily, was not taking this daily, advised to be consistent with his medication intakeGet labs Prediabetes 678245031 R7 3.03 On metformin 500mg po bidGet labs He does see an eye doctor in [place], [place], referred to eye Premature ejaculation 44 671209 F52.4 Feels that he does have this, will refer to urology Vitamin D deficiency 347 17936 E55.9 Administra tion of influenza vaccine 56730961 Z23 [id number] Lukas rojas MD [facility] Internal Med [facility] [address] [facility], [facility] 15 [place] [address] 01/10/2024 15:16:57 01/10/2024 15:50:36 Screening - NAD 379401590 Z13.9 UTD yearly flu shotUTD Tdap 06/04/18UT D on COVID 19 vaccine, follow all CDC guidelines RTC in 6 monthsDo labsER if worseHe did verbalize his understand ing of the above Leukopenia 73440821 D72. 819 WBC 12/26/2021 : Much improved Get labsKedar has seen Dr Real in the past Dr Pizarro 01/01/2023 , next in 8 monthsDr César 09/03/2023 : F/u yearly Hyperlipidemia 69799031 E78.5 On rosuvastat in 40mg daily, was not taking this daily, advised to be consistent with his medication intakeGet labs Prediabetes 139331476 R7 3.03 On metformin 500mg po bidGet labs He does see an eye doctor in [place], referred to eye Premature ejaculation 44 335526 F52.4 Feels that he does have this, will refer to urology Vitamin D deficiency 347 47729 E55.9 On vit d weeklyGet labs [id number] Cain Cote MD [facility] [address] [facility] [address] [place] [address] 03/21/2024 14:54:34 03/21/2024 15:24:56 Constipation 85439335 K59.00 [id number] Lukas rojas MD [facility] Primary [facility] [address] [facility] [address] [place] [address] 11/17/2024 16:36:42 11/17/2024 18:06:05 Screening - NAD 450409550 Z13.9 UTD yearly flu shotUTD Tdap 06/04/18UT D on COVID 19 vaccine, follow all CDC guidelines RTC in 6 monthsDo labsER if worseHe did verbalize his understand ing of the above Leukopenia 09999506 D72. 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 Not on any medication s, no more apts with urology Vitamin D deficiency 347 78403 E55.9 On vit d weeklyGet labs Liver enzy mes level above reference range 905827467 R74.01 Get US liver, hepatitis panel and [facility] Concerns Section Related Observation LastModified by Organization Detai ls LastModified Time None Recorded Concern Status LastModified by Organization Details LastModified Time None Recorded Advance Directives Directive N: Payers Encounter Date Sequence Insurance Name Policy Number Policy Newton Covered Member ID Newton Member ID Guarantor Name 01/02/2023 1 [facility] [id number] Tanner Ramires [id number] Tanner Ramires 07/23/2023 1 [facility] [id number] Tanner Ramires [id number] Tanner Ramires 01/10/2024 1 [facility] [id number] Tanner Evelin Ramires [id number] Tanner Ramires 03/21/2024 1 [facility] [id number] Tanner Evelin Ramires [id number] Tanner Ramires 11/17/2024 1 [facility] [id number] Tanner Evelin Ramires [id number] Tanner Ramires Notes Date Note Type Note Provider Name and Address Organization Details Recorded Time 01/02/2023 text/html OV 06/04/18:Here to establish carePCP: [facility],Past Hx:NoneReviewed social family and surgical historyHere to [...] he did labs Lukas Bustamante MD [address] [facility], [facility] [address], [place], [address], [facility] [employer] 01/02/2023 10:35:43 07/23/2023 text/html OV 06/04/18:Here to establish carePCP: Dr Martínez in [facility],Past Hx:NoneReviewed social family and surgical historyHere to [...] do the labs Lukas Bustamante MD [address] [facility], [facility] [address], [place], [address], [facility] 07/23/2023 14:52:00 01/10/2024 text/html OV 06/04/18:Here to establish carePCP: Dr Martínez in [facility],Past Hx:NoneReviewed social family and surgical historyHere to [...] 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 [employer] 09/30/2019:Here for his routine aptHe feels really [...] Bustamante MD [address], [place], [address], [facility] [employer] [facility] [employer] [facility] 01/10/2024 15:54:32 03/21/2024 text/html so this [...] for his referral Cain Cote MD [address], [place], [address], [employer] [facility] [employer] [facility] 03/21/2024 15:33:26 11/17/2024 text/html OV 06/04/18:Here to establish carePCP: Dr Martínez in [facility],Past Hx:NoneReviewed social family and surgical historyHere to [...] routine apt, he is doing well today OV 11/17/2024: Here for his f/u apt, he feels well today, he did do the labs Lukas Bustamante MD [address], [place], [address], [place] [employer] 11/17/2024 18:07:07
--- OUTSIDE RECORDS SUMMARY | 2024-12-30 14:42 | XMS_ITS | Referral Summary ---
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
--- OUTSIDE RECORDS SUMMARY | 2024-12-30 14:42 | XMS_ITS | Clinical Summary ---
Author Organization [facility] Address [address] [place] [address] Care Team Providers Care Employment Clerk Name Role Phone Unavailable Primary Care Provider Unavailabl e Source Comments [facility],non-owned Affiliates and Associated Physician Practices is amultiple site organization consisting of ambulatory clinics and hospital sitesin [place] and [place]. This disclosure is being madepursuant to the Care Everywhere program and may not contain all information available regarding this patient. Last updated 18.[facility] [employer] Allergies Active Allergy Reactions Criticality Noted Date Comments Ibuprofen Urticaria,Swelling Medium 03/28/2012 Swelling Immunizations Immunization Administration Dates Next Due TDAP (7yrs+) 04/12/2021 Social History Tobacco Use Types Packs/Day Years Used Date Smoking Tobacco: Never Assessed Sex and Gender Information Value Date Recorded Sex Assigned at Not on file Legal Sex Male 4:44 PM CDT Gender Identity Not on file Sexual Orientation Not on file Plan of Treatment Health Maintenance Due Date Last Done Comments HIV SCREENING 2003 HEPATITIS C SCREENING 07/20/2006 HEPATITIS B VACCINE (1 of 3 - 19+ 3-dose series) 2007 COVID-19 VACCINE ( - 2023-2 5 season) 2024 DEPRESSION SCREENING 08/27/2024 INFLUENZA VACCINE (Season Ended) 2025 06/05/2019, 06/27/2018, 06/04/2018 DTAP/TDAP/TD VACCINES (2 - T d or Tdap) 04/12/2031 04/12/2021 ZOSTER VACCINE (1 of 2) 2038 HIB VACCINE Aged Out No longer eligi ble based on patient's age to complete this topic HPV VACCINE Aged Out No longer eligi ble based on patient's age to complete this topic MENINGOCOCCAL (Group B) VACCINE SHARED DECISION-MAKING Aged Out No longer eligible based on patient's age to complete this topic MENINGOCOCCAL GROUPS A/C/Y/W VACCINE Aged Out No longer eligible b ased on patient's age to complete this topic PNEUMOCOCCAL VACCINE Aged Out No long er eligible based on patient's age [place] [id number]
--- OUTSIDE RECORDS SUMMARY | 2024-12-30 14:42 | XMS_ITS | Clinical Summary ---
Author Organization [facility] Address [address] [place] [address] Care Team Providers Care Manager Philosophy Name Role Phone Lukas Bustamante MD Primary Care Provider Allergies No known active allergies Medications metFORMIN (GLUCOPHAGE) 500 mg tablet Take 500 mg by mouth 2 times daily. 01/13/2021 Active Active Problems Problem Noted Date Diagnosed Date Other neutropenia 02/06/2022 Encounters Date Type Department Care Team Description 11/20/2024 Abstract [facility] - [place] [address] [place] [address] Evaristo Lindsey MD from Last 3 Months Family History Medical [...] Comments Blood Pressure 138/84 09/03/2023 10:10 AM HEALTH INFORMATION TECH Pulse 82 09/03/2023 10:09 AM HEALTH INFORMATION TECH Temperature 36.2 C (97.2 F) 09/03/2023 10:09 AM HEALTH INFORMATION TECH Respiratory Rate 10 09/03/2023 10:09 AM HEALTH INFORMATION TECH Oxygen Saturation 97% 09/03/2023 10:09 AM HEALTH INFORMATION TECH Inhaled Oxygen Concentration - - Weight 76.2 kg (168 lb) 09/03/2023 10:09 AM HEALTH INFORMATION TECH Height 180.3 cm (5' 11 ) 02/06/2022 10:24 AM CDT Body Mass Index 23.43 02/06/2022 10:24 AM CDT Plan of Treatment Upcoming Encounters Date Type Department Care Team (Late st Contact Info) Description 12/30/2024 2:45 PM CDT Office Visit [facility] [place] [address] [facility] [address] [place] [address] Evaristo Lindsey MD [address] [facility] [address] [place] [address] Health Maintenance Due Date Last Done Comments HEPATITIS B VACCINES (1 of 3 - 19+ 3-dose series) 2007 INFLUENZA VACCINE (#1) 2024 2, 06/05/2019, 06/04/2018 DTAP/TDAP/TD VACCINES (8 - Td or Tdap) 04/12/2031 04/12/2021, 06/04/2018, 04/27/2014, Additional history exists HPV VACCINES Aged Out No longer eligi ble based on patient's age to complete this topic Insurance Care Teams Manager Philosophy Relationship Specialty Start Date End Date Lukas Bustamante MD PCP - General Internal Medicine 6/13/22
[2024-12-30 14:55] LABS: Basophils Percent Auto 0.4 % (0.2-1.2); Eosinophils Absolute Auto 0.4 K/mm3 (0-0.3); Eosinophils Percent Auto 7.5 % (0-4.4); Hematocrit 42.5 % (42.0-52.0); Hemoglobin 13.8 g/dL (14.0-18.0); Immature Granulocyte Absolute 0.01 K/mm3 (0.00-0.031); Immature Granulocyte Percent A 0.2 % (0-0.5); Lymphocytes Absolute Auto 1.97 K/mm3 (0.9-3.2); Lymphocytes Percent Auto 41.3 % (18.3-44.2); Mean Corpuscular HGB Conc 32.5 g/dl (32-36); Mean Corpuscular Hemoglobin 27.5 pg (26-34); Mean Corpuscular Volume 84.7 fl (80-100); Mean Platelet Volume 10.2 fl (7.4-10.4); Monocytes Absolute Auto 0.5 K/mm3 (0.1-0.6); Monocytes Percent Auto 9.6 % (2.6-8.5); Platelet Count Result 230 k/mm3 (150-375); Red Blood Count 5.02 M/mm3 (4.6-6.20); Red Cell Distribution Width 13.2 % (11.5-14.5); White Blood Count 4.8 K/mm3 (4.5-10.0)
[2024-12-30 14:59] LABS: Blood Urea Nitrogen 30 mg/dL (8-26); Carbon Dioxide 27 mmol/L (22-30); Chloride 102 mmol/L (98-109); Estimated Glomerular Filt Rate 53; Glucose 90 mg/dL (70-105); Sodium 141 mmol/L (138-146)
[2024-12-30 16:19] LABS: Alanine Aminotransferase 39 U/L (6-50); Albumin Level 4.4 g/dL (3.5-5.1); Alkaline Phosphatase 53 U/L (38-126); Anion Gap 9 mmol/L (4-12); Aspartate Amino Transferase 52 U/L (17-59); Bilirubin,Total 0.4 mg/dL (0.2-1.3); Blood Urea Nitrogen 32 mg/dL (9-20); Calcium 8.9 mg/dL (8.4-10.2); Carbon Dioxide 27 mmol/L (22-30); Chloride 103 mmol/L (98-107); Estimated Glomerular Filt Rate > 60; Glucose 88 mg/dL (65-110); Sodium 139 mmol/L (137-145)
== END 2024-12-30 14:38 | disposition home or self-care (01) ==
LOC: ANHLAB 14:38
PROVIDERS: PCP Internal Medicine; Visit Provider Internal Medicine Hematology & Oncology
DX: D72.819 Decreased white blood cell count, unspecified (principal)
CPT/HCPCS: 36415; 80047; 80053; 85025